=== PATIENT | female | born 1965 | race American Indian/Alaskan Native ===

== ENCOUNTER → 2018-10-12 07:06 | Outpatient (CLI) | payer OTHER, SELFPAY ==
--- NOTE | 2018-10-12 07:55 | DI.CT.S_ITS ---
PROCEDURE: CT KIDNEY URETER BLADDER (KUB) INDICATIONS: Calculus of kidney flank pain TECHNIQUE: Noncontrast 5 mm thick sections acquired from the diaphragms to the symphysis. 5 mm thick coronal and sagittal reformats were then performed. For radiation dose reduction, the following was used: automated exposure control, adjustment of mA and/or kV according to patient size. COMPARISON: [facility], CR, KUB XRAY (1 VIEW ABDOMEN), 01/15/2017, 14:08. [facility], CT, KIDNEY/ URETER/BLADDER, 07/21/2014, 10:44. [facility], CT, KIDNEY/ URETER/BLADDER, 05/28/2011, 9:45. FINDINGS: Image quality: Excellent. Lung bases: Lung bases are clear. Heart size is normal. Bilateral breast implants are identified, without evidence of definite implant rupture but there is asymmetry in the soft tissues at the lateral lower aspect of the left breast implant with mild nodularity (best seen centered on series 2 image 14). This is clearly asymmetric, when compared to the same area on the right. Urinary system: Both kidneys are normal in size. There are bilateral kidney stones ranging in size from 1 mm to 9 mm, with the largest calculus located at the lower third collecting system of the right kidney, measuring up to 780 Hounsfield units.. No hydronephrosis or perinephric fat stranding. Both ureters appear non-dilated throughout their expected courses. At the lower pelvis adjacent to the expected course of the left ureter there are 3 separate small 1-2 mm calculi none of which appear definitely within the distal left ureter which is obscured by apposition to adjacent soft tissue structures. No ureteral dilatation or inflammation in this area is found. Bladder wall thickness is normal; no calcified bladder stones. Other solid organs: Liver is normal in size. Gallbladder appears normal. Pancreas is normal in contours. Spleen is normal in size. No adrenal nodules. Peritoneum and bowel: Unenhanced bowel loops demonstrate normal wall thickness and caliber. No free fluid or air. Nodes and vessels: No retroperitoneal or mesenteric adenopathy by size criteria. Aorta and inferior vena cava are normal in caliber. Abdominal wall: No ventral hernias. Pelvis: No free pelvic fluid. No inguinal hernias or adenopathy. Bones: No suspicious bony lesions. No vertebral body compression fractures. IMPRESSION: 1. There is an unexpected finding adjacent to the lateral lower border of the left breast implant, clearly asymmetric when compared to the same area adjacent to the right breast implant, potentially evidence of an implant rupture or even neoplasm. Dedicated sonographic and mammographic followup is recommended targeted to that area. No comparison mammography related studies are available for review but may exist elsewhere. If so these should be obtained for comparison. 2. Interval removal of a left ureteral stent present 01/15/17. Occluded patient reports bilateral flank pain. No urinary tract obstruction is found that there is again noted multiple renal collecting system calculi, ranging in size from 1-2 mm to 9 mm. 3. The ureter bilaterally is not clearly visualized as it extends through the low pelvis to the bladder margin and on the left 3 small 1-2 mm calcifications can be seen which by appearance are likely external to the ureter on the left, especially given the absence of ureteral inflammation or dilatation more superiorly. Dictated by: Alex Marquez M.D. on 10/12/2018 at 8:16 Approved by: Alex Marquez M.D. on 10/12/2018 at 8:28
== END ==
PROVIDERS: Visit Provider Physician Assistant
DX: N20.0 Calculus of kidney (principal); N64.89 Other specified disorders of breast; Z98.82 Breast implant status
CPT/HCPCS: 74176

== ENCOUNTER 2018-11-06 18:08 | Emergency (ER) | payer OTHER, SELFPAY ==
[2018-11-06 18:47] VITALS: PULSE 69; RESP 18; TEMP 37.8; O2SAT 100; BMI 27.0
--- NOTE | 2018-11-06 19:05 | ED.ABDPAIN ---
HPI - Abdominal Pain General Chief Complaint: Abdominal Pain Stated Complaint: nausea/both legs pain/flank pain x 90 minutes Time Seen by Provider: 11/06/18 19:00 Source: patient and family () Mode of arrival: Ambulatory Limitations: no limitations History of Present Illness HPI narrative: This is a 53-year-old female who comes to the emergency department with complaint of right flank pain. Patient states that it started about 90 minutes ago. Patient states that she recently had a ureteral stent placed after cystoscopy for kidney stones by Dr. Huffman. Patient states that she has not had any fevers. She did and is having nausea and vomiting. She has had a normal bowel movement today, she denies minimal abdominal pain a little bit on the right mid side but mostly on the right flank and back. Patient denies any frequency or dysuria but has had some small blood clots and hematuria. She denies any vaginal bleeding or discharge. She states that she has had a partial hysterectomy. Denies any other prior surgeries. Denies any daily regular medications. States that she has vomiting with morphine and Percocet as well as allergic reaction penicillin. She does have a scopolamine patch in place for nausea s/p ureteral stent. Related Data Previous Rx's Medication Instructions Recorded ciprofloxacin HCl 500 mg PO BID #10 tab 11/06/18 ketorolac 10 mg PO Q6H PRN 5 Days #10 tab 11/06/18 Allergies Allergy/AdvReac Type Severity Reaction Status Date / Time morphine [MORPHINE] Allergy Unknown Verified 11/06/18 18:44 Penicillins [PENICILLINS] Allergy Unknown Verified 11/06/18 18:44 Review of Systems Review of Systems ROS Unobtainable: All systems reviewed & are unremarkable except as noted in HPI and below Constitutional Constitutional: Denies chills, Denies fever(s), Denies lethargy and Denies weakness Gastrointestinal Gastrointestinal: Reports abdominal pain (minimal right), Denies melena, Denies hematochezia, Denies change in bowel habits, Denies constipation, Denies diarrhea, Reports nausea and Reports vomiting Genitourinary Genitourinary: Reports as per HPI, Denies abnormal vaginal bleeding, Denies hematuria, Denies urinary frequency, Denies dysuria, Reports flank pain (right), Denies urinary incontinence, Denies urinary hesitancy, Denies urinary urgency and Denies vaginal discharge Neurologic Neurologic: Denies weakness PFSH Surgical History (Updated 11/06/18 @ 22:59 by Loli Negron DO) S/P ureteral stent placement (Acute) Social History (Updated 11/06/18 @ 19:08 by Loli Negron DO) marital status: Smoking Status: Never smoker Social History (Updated 11/06/18 @ 19:08 by Loli Negron DO) marital status: Smoking Status: Never smoker Exam Narrative Exam Narrative: GENERAL: Alert and oriented x three, well nourished female in moderate. HEENT: Head normocephalic, atraumatic, EOMI, pupils reactive, face symmetric, moist mucous membranes NECK: Supple, full range of motion CARDIOVASCULAR: Regular rate and rhythm without murmurs, rubs or gallops. RESPIRATORY: Breath sounds equal bilaterally, no wheezes rales or rhonchi. ABDOMEN: Soft, nontender. Normoactive bowel sounds all 4 quadrants. No guarding or rebound, rigidity, no mass : mild right CVA tenderness EXTREMITIES: Normal range of motion. Neurovascularly intact NEUROLOGICAL: Cranial nerves II through XII grossly intact. Moving all extremities SKIN: Warm, dry, no petechiae, no rashes or lesions. Initial Vital Signs Initial Vital Signs: Vital Signs Temperature 100.0 F H 11/06/18 18:47 Pulse Rate 69 11/06/18 18:47 Respiratory Rate 18 11/06/18 18:47 Pulse Oximetry 100 11/06/18 18:47 Course Orders Ordered: ED Orders 11/06/18 21:27 Urinalysis and Microscopic Stat Urine Culture Stat Discontinued Medications Hydromorphone HCl (Dilaudid) 0.5 mg IV NOW ONE Stop: 11/06/18 21:31 Last Admin: 11/06/18 22:02 Dose: 0.5 mg Documented by: YARELI Sodium Chloride (Normal Saline 0.9%) 1,000 mls @ 1,000 mls/hr IV BOLUS ONE Stop: 11/06/18 20:03 Last Infusion: 11/06/18 20:25 Dose: 0 mls/hr Documented by: Admin: 11/06/18 19:18 Dose: 1,000 mls/hr Documented by: YARELI Ketorolac Tromethamine (Toradol) 30 mg IV NOW ONE Stop: 11/06/18 19:05 Last Admin: 11/06/18 19:18 Dose: 30 mg Documented by: YARELI Levofloxacin (Levaquin) 500 mg PO NOW ONE Stop: 11/06/18 23:09 Last Admin: 11/06/18 23:18 Dose: 500 mg Documented by: YARELI Ondansetron HCl (Zofran) 4 mg IV NOW ONE Stop: 11/06/18 19:05 Last Admin: 11/06/18 19:18 Dose: 4 mg Documented by: YARELI Ondansetron HCl (Zofran) 4 mg IV NOW ONE Stop: 11/06/18 21:52 Last Admin: 11/06/18 22:03 Dose: 4 mg Documented by: YARELI Vital Signs Vital signs: Vital Signs - 8 hr 11/06/18 23:53 Temperature 98.7 F Pulse Rate 59 L Respiratory Rate 18 Blood Pressure 115/72 Pulse Oximetry 98 MDM - Abdominal Pain Lab Data Attestation: I reviewed the patient's lab results. Result diagrams: 11/06/18 19:06 11/06/18 19:06 Labs: Lab Results 11/06/18 11/06/18 11/06/18 Range/Units 19:06 19:06 21:27 WBC 12.7 H (4.5-11.0) X10^3/uL RBC 4.23 (4.0-5.2) X10^6/uL Hgb 13.1 (12.0-16.0) g/dL Hct 38.6 (36-46) % MCV 91.4 (80-100) fL MCH 30.9 (26-34) PG MCHC 33.8 (30-36) % RDW 13.4 (11.6-14.8) % Plt Count 247 (150-400) X10^3/uL Neut % (Auto) 71.8 (50-75) % Lymph % (Auto) 20.4 L (25-40) % [place] % (Auto) 6.1 (3-14) % Eos % (Auto) 1.4 L (2-4) % Baso % (Auto) 0.3 (0-2) % Neut # (Auto) 9100 H (5933-8118) /uL Lymph # (Auto) 2600 (3109-9890) /uL [place] # (Auto) 800 (0-900) /uL Eos # (Auto) 200 (0-450) /uL Baso # (Auto) 0 (0-100) /uL Sodium 137 (137-145) mmol/L Potassium 3.7 (3.4-5.1) mmol/L Chloride 103 (98-107) mmol/L Carbon Dioxide 25 (22-32) mmol/L BUN 20 H (7-17) mg/dL Creatinine 0.70 (0.52-1.04) mg/dL Estimated GFR > 60.0 (>60) mL/min BUN/Creatinine Ratio 28.6 H (6-22) Glucose 92 (70-100) mg/dL Calcium 9.0 (8.4-10.2) mg/dL Total Bilirubin 0.5 (0.2-1.3) mg/dL AST 18 (14-36) IU/L ALT 20 (9-52) IU/L Alkaline Phosphatase 44 (38-126) U/L Total Protein 7.3 (6.3-8.2) g/dL Albumin 4.4 (3.5-5.0) g/dL Globulin 2.9 (1.7-4.1) g/dL Albumin/Globulin Ratio 1.5 (1.0-2.8) Lipase 41 (23-300) U/L Urine Color Red Urine Appearance Cloudy Urine pH 7.5 (4.5-8.0) Ur Specific [place] 1.010 (1.000-1.035) Urine Protein 2+ H (Negative) Urine Glucose (UA) Negative (Negative) g/dL Urine Ketones 1+ H (NEGATIVE) Urine Occult Blood 3+ H (Negative) Urine Nitrate Negative (Negative) Urine Bilirubin Negative (NEGATIVE) Urine Urobilinogen Normal (0.2) E.U./dL Ur Leukocyte Esterase 2+ H (NEGATIVE) Urine RBC >100/hpf H (0-5/HPF) Urine WBC 5-10/hpf H (0-5/HPF) Ur Squamous Epith Cells 1-5 /hpf (0-5/HPF) Urine Bacteria Few (2-10) H (None) Urine Mucus 2+ H (Negative) Ur Culture Indicated? Specimen cultured Imaging Data CT KUB: Radiologist's impression: [address] [address] [address] Scan Report Signed Patient: Patria Perez [facility]#: [id number] : 1965Acct:[id number] Age/Sex: 53 / FDate of Service: 11/06/18 Loc: ED Accession Number: [id number] Procedure: CT abdomen pelvis wo con Ordering Provider: Loli Negron D.O. PROCEDURE: CT ABDOMEN PELVIS WO CON INDICATIONS: right flank pain, ureteral stent placed, hx stones TECHNIQUE: Noncontrast 5 mm thick sections acquired from the diaphragms to the symphysis. 5 mm thick coronal and sagittal reformats were then performed. For radiation dose reduction, the following was used: automated exposure control, adjustment of mA and/or kV according to patient size. COMPARISON: [facility], CT, CT KIDNEY URETER BLADDER (KUB), 10/12/2018, 7:09. FINDINGS: Image quality: Excellent. Lung bases: Lung bases are clear. Heart size is normal. Bilateral breast implants are again seen with irregularity and asymmetry along lateral aspect of left breast implant concerning for impending rupture unchanged from previous study. Urinary system: Bilateral nonobstructing renal calculi are again seen, not significantly changed in size and appearance from previous study. There is interval placement of a right-sided ureteral stent which is in its expected position. There is interval development of moderate right-sided hydronephrosis and hydroureter surrounding the stent concerning for stent failure or occlusion. No left-sided hydronephrosis or obstructing renal stone is seen. Left ureter shows no gross abnormality. Bladder wall thickness is normal; no calcified bladder stones. Other solid organs: Liver is normal in size. Gallbladder is within normal limits. Pancreas is normal in contours. Spleen is normal in size. No adrenal nodules. Peritoneum and bowel: Unenhanced bowel loops demonstrate normal wall thickness and caliber. No free fluid or air. Fecal stasis throughout the colon is seen. No evidence of acute appendicitis or diverticulitis. Nodes and vessels: No retroperitoneal or mesenteric adenopathy by size criteria. Aorta and inferior vena cava are normal in caliber. Abdominal wall: No ventral hernias. Pelvis: No free pelvic fluid. No inguinal hernias or adenopathy. Bones: No suspicious bony lesions. No vertebral body compression fractures. IMPRESSION: 1. Compared to previous study, there is interval placement of a right-sided ureteral stent which is in satisfactory position. There is interval development of moderate right-sided hydronephrosis and hydroureter concerning for stent occlusion/failure. 2. Bilateral nonobstructing renal calculi. No left-sided hydronephrosis. Normal appearing left ureter and urinary bladder. 3. Abnormal appearance along lateral aspect of left breast implant concerning for implant rupture suggest clinical correlation. Dictated by: Donnie García M.D. on 11/06/2018 at 20:08 Approved by: Donnie García M.D. on 11/06/2018 at 20:16 [facility] Narrative Medical decision making narrative: Recheck after pain medications, patient is much more comfortable. During patient's stay she became more uncomfortable again responded to a dose of Dilaudid. Patient and I reviewed her findings, lab work and urinalysis. I spoke with Dr. Huffman her urologist who states that her hydronephrosis is not unexpected, chills a elevated white count of 12, temperature was a 100? F but did not increase any further, urine shows leuks but no nitrates, no clear-cut UTI. Patient's renal function is in the normal range. She does have a urine culture pending. Patient is expected to be seen this coming Thursday in 5 days. She does recommend starting Cipro 500 mg twice daily. Discussed with patient if she is not improving to recontact Urology but if worsening or having any new complications or feels the need she can return at any time. She is much more comfortable and has several medications available at home. We did discuss trying a dose of ketorolac oral at home for the short term. She does have Vicodin or Sims at home. She deferred a prescription for Zofran. Discharge Plan Departure Patient Disposition: Home Clinical Impression: S/P ureteral stent placement, Hydronephrosis Discharge Date/Time: 11/06/18 23:57 Instructions: DI for Ureteral Stent Placement Activity Restrictions/Additional Instructions: Follow-up with Dr. Huffman at your follow-up appointment. Call for sooner appointment if your symptoms are not improving over the next 24 hours. Take Ciprofloxacin 500 mg twice daily x5 days. Take pain medications as prescribed these medications can make you sleepy do not drive, perform hazardous activities or make any major decisions while taking them. A you may also take Toradol 1 tablet every 6 hours as needed for pain. You may take this with your Sims/Vicodin. Return to the Emergency Department fevers greater 100.4 F, persistent vomiting, new abdominal or flank pain, passing out, black or bloody stools, inability urinate or other new or concerning symptoms. Prescriptions: New ketorolac 10 mg tablet 10 mg PO Q6H PRN (Reason: pain) 5 Days Qty: 10 RF: 0 ciprofloxacin HCl 500 mg tablet 500 mg PO BID Qty: 10 RF: 0 Referrals: Atul Arias MD [Primary Care Provider] -
[2018-11-06] MEDS: KETOROLAC 60 MG/2 ML VIAL 30 MG IV (19:18)
[2018-11-06] MEDS: ONDANSETRON 4 MG/2 ML INJ IV ×2 (19:18→22:03)
[2018-11-06] MEDS: SODIUM CHLORIDE 0.9% 1,000 ML 1000 ML IV (19:18)
--- NOTE | 2018-11-06 19:25 | PC.NURSE ---
Pt had hysterectomy. Urine preg cancelled.
[2018-11-06 19:30] LABS: Add Manual Diff / Slide Review NO; Basophils Absolute Auto 0 /uL (0-100); Basophils Percent Auto 0.3 % (0-2); Eosinophils Absolute Auto 200 /uL (0-450); Eosinophils Percent Auto 1.4 % (2-4); Hematocrit 38.6 % (36-46); Hemoglobin 13.1 g/dL (12.0-16.0); Lymphocytes Absolute Auto 2600 /uL (1100-4500); Lymphocytes Percent Auto 20.4 % (25-40); Mean Corpuscular HGB Conc 33.8 % (30-36); Mean Corpuscular Hemoglobin 30.9 PG (26-34); Mean Corpuscular Volume 91.4 fL (80-100); Monocytes Absolute Auto 800 /uL (0-900); Monocytes Percent Auto 6.1 % (3-14); Neutrophils Absolute Auto 9100 /uL (1500-7000); Neutrophils Percent Auto 71.8 % (50-75); Platelet Count 247 X10^3/uL (150-400); Red Blood Cell Count 4.23 X10^6/uL (4.0-5.2); Red Cell Distribution Width 13.4 % (11.6-14.8); White Blood Cell Count 12.7 X10^3/uL (4.5-11.0)
[2018-11-06 19:46] LABS: Alanine Aminotransferase 20 IU/L (9-52); Albumin 4.4 g/dL (3.5-5.0); Albumin Globulin Ratio 1.5 (1.0-2.8); Alkaline Phosphatase 44 U/L (38-126); Aspartate Aminotransferase 18 IU/L (14-36); BUN Creatinine Ratio 28.6 (6-22); Bilirubin Total 0.5 mg/dL (0.2-1.3); Blood Urea Nitrogen 20 mg/dL (7-17); Carbon Dioxide 25 mmol/L (22-32); Chloride 103 mmol/L (98-107); Estimated Glomerular Filt Rate > 60.0 mL/min (>60); Globulin 2.9 g/dL (1.7-4.1); Glucose 92 mg/dL (70-100); HEMOLYSIS < 15 (0-50); Potassium 3.7 mmol/L (3.4-5.1); Sodium 137 mmol/L (137-145); Total Protein 7.3 g/dL (6.3-8.2)
[2018-11-06 19:57] VITALS: BP 95/58; PULSE 62; O2SAT 98
[2018-11-06 20:30] VITALS: BP 94/54; PULSE 61; RESP 18; O2SAT 98
[2018-11-06 20:50] LABS: Lipase 41 U/L (23-300)
[2018-11-06] MEDS: HYDROMORPHONE 0.5 MG INJ IV (22:02)
[2018-11-06 22:20] LABS: Appearance Urine UA Cloudy; Color Urine UA Red; Glucose Urine UA NEGATIVE (Negative); Protein Urine UA 2+ (Negative); pH Urine UA 7.5 (4.5-8.0)
[2018-11-06 22:21] LABS: Bacteria Urine Few (2-10); Bilirubin Urine UA Negative (NEGATIVE); Ketones Urine UA 1+ (NEGATIVE); Leukocyte Esterase Urine UA 2+ (NEGATIVE); Nitrite Urine UA NEGATIVE (Negative); Occult Blood Urine UA 3+ (Negative); RBC Urine >100/HPF (0-5/HPF); Squamous Epithelial Cell Urine 1-5 /HPF (0-5/HPF); Urobilinogen Urine UA Normal E.U./dL (0.2); WBC Urine 5-10/HPF (0-5/HPF)
[2018-11-06 22:22] LABS: Culture Indicated Urine Specimen Cultured; Mucus Urine 2+ (Negative)
[2018-11-06] MEDS: levoFLOXacin 250 MG TABLET 500 MG PO (23:18)
[2018-11-06 23:53] VITALS: BP 115/72; PULSE 59; RESP 18; TEMP 37.1; O2SAT 98
== END 2018-11-06 23:57 | disposition home or self-care (01) ==
PROVIDERS: Emergency Provider Emergency Medicine
DX: Z96.0 Presence of urogenital implants (principal); N13.30 Unspecified hydronephrosis
CPT/HCPCS: 36415; 74176; 80053; 81001; 83690; 85025; 87077; 87086; 87147; 87186; 96361; 96374; 96375; 96376; 99283; 99284; J1170; J1885; J2405

== ENCOUNTER → 2018-11-16 10:30 | Outpatient (CLI) | payer OTHER, SELFPAY ==
--- NOTE | 2018-11-16 | DI.US.S_ITS ---
PROCEDURE: US RENAL COMPLETE INDICATIONS: STONES TECHNIQUE: Real-time scanning was performed of the kidneys and bladder, with image documentation. COMPARISON: [facility], CR, XR RETROGRADE UROGRAPHY, 11/02/2018, 17:22. [facility], CT, KIDNEY/ URETER/BLADDER, 07/21/2014, 10:44. [facility], CT, CT KIDNEY URETER BLADDER (KUB), 10/12/2018, 7:09. [facility], CT, CT ABDOMEN PELVIS WO CON, 11/06/2018, 19:13. FINDINGS: Kidneys: Kidneys are normal in size. Right kidney measures 11.9 cm long; left kidney measures 1.6 cm long. Right renal cortical thickness is 11.1 cm; left renal cortical thickness is 1.5 cm. Renal cortical echotexture is normal. There is a 1.0 cm stone in the inferior right renal collection system. There is mild right hydronephrosis. A couple of nonobstructive stones are noted in the left kidney measuring 4.8 mm and 5.7 mm. A ureter stent is noted on the right side. No left hydronephrosis. No suspicious solid mass lesions. Bladder: Pre-void bladder volume is 45 mL. Post-void residual is 0 mL. Pre-void images demonstrate no intraluminal masses or stones. On pre-void images, neither ureteral jets are noted with color Doppler interrogation. (Of note, ureteral jets may not be detectable in up to 25% of cases due to insufficient differences in specific gravity between ureteral and bladder urine). Miscellaneous: No free pelvic fluid. IMPRESSION: 1. There is a right ureter stent. Mild left hydronephrosis is present. There is a 1.2 cm stone in the inferior right renal collecting system. 2. A couple of nonobstructive left renal calculi are identified. No left hydronephrosis. 3. Normal urinary bladder. Neither ureters were visualized during examination. Dictated by: Brijesh Fatima M.D. on 11/16/2018 at 15:42 Approved by: Brijesh Fatima M.D. on 11/16/2018 at 15:48
== END ==
PROVIDERS: PCP Family Medicine; Visit Provider Urology
DX: N13.2 Hydronephrosis with renal and ureteral calculous obstruction (principal); Z96.0 Presence of urogenital implants
CPT/HCPCS: 76770

== ENCOUNTER → 2019-04-14 13:12 | Outpatient (CLI) | payer OTHER, SELFPAY ==
[2019-04-14 14:37] LABS: Appearance Urine UA CLEAR; Bilirubin Urine UA NEGATIVE (NEGATIVE); Color Urine UA YELLOW; Glucose Urine UA NEGATIVE (Negative); Ketones Urine UA NEGATIVE (NEGATIVE); Leukocyte Esterase Urine UA NEGATIVE (NEGATIVE); Nitrite Urine UA NEGATIVE (Negative); Occult Blood Urine UA 3+ (Negative); Protein Urine UA NEGATIVE (Negative); Urobilinogen Urine UA 0.2 E.U./dL (0.2)
[2019-04-14 15:05] LABS: pH Urine UA 5.5 (4.5-8.0)
[2019-04-14 15:06] LABS: Bacteria Urine Occasional (0-1); Culture Indicated Urine Specimen Cultured; Mucus Urine 1+ (Negative); RBC Urine 1-5/HPF (0-5/HPF); Squamous Epithelial Cell Urine 0-1 /HPF (0-5/HPF); WBC Urine 5-10/HPF (0-5/HPF)
== END ==
PROVIDERS: PCP Family Medicine
DX: N20.0 Calculus of kidney (principal)
CPT/HCPCS: 81001; 87086

== ENCOUNTER 2022-04-28 12:53 | Emergency (ER) | payer OTHER, SELFPAY ==
[2022-04-28 13:10] VITALS: BP 120/81; PULSE 73; RESP 17; TEMP 36.6; O2SAT 100
[2022-04-28 13:44] LABS: Bacteria Urine Few (2-10); Culture Indicated Urine Specimen Cultured; Mucus Urine 1+ (Negative); RBC Urine 1-5/HPF (0-5/HPF); Squamous Epithelial Cell Urine 1-5 /HPF (0-5/HPF); WBC Urine 5-10/HPF (0-5/HPF)
[2022-04-28 14:10] LABS: Add Manual Diff / Slide Review NO; Basophils Absolute Auto 0 /uL (0-100); Basophils Percent Auto 0.6 % (0-2); Eosinophils Absolute Auto 100 /uL (0-450); Eosinophils Percent Auto 1.8 % (2-4); Hematocrit 38.3 % (36-46); Hemoglobin 12.7 g/dL (12.0-16.0); Lymphocytes Absolute Auto 1800 /uL (1100-4500); Lymphocytes Percent Auto 21.9 % (25-40); Mean Corpuscular HGB Conc 33.2 % (30-36); Mean Corpuscular Hemoglobin 29.8 PG (26-34); Monocytes Absolute Auto 600 /uL (0-900); Monocytes Percent Auto 7.6 % (3-14); Neutrophils Absolute Auto 5500 /uL (1500-7000); Neutrophils Percent Auto 68.1 % (50-75); Platelet Count 262 X10^3/uL (150-400); Red Blood Cell Count 4.26 X10^6/uL (4.0-5.2); Red Cell Distribution Width 13.9 % (11.6-14.8)
--- NOTE | 2022-04-28 14:17 | DI.CT.S_ITS ---
PROCEDURE: CT ABDOMEN PELVIS W CON INDICATIONS: R flank pain TECHNIQUE: After the administration of IV contrast, axial sections were acquired from the lung bases to the pubic symphysis. Coronal and sagittal reformats were performed. For radiation dose reduction, the following was used: automated exposure control, adjustment of mA and/or kV according to patient size. COMPARISON: [facility], CT, CT ABDOMEN PELVIS WO CON, 11/06/2018, 19:13. FINDINGS: Image quality: Excellent. Lung bases: Unremarkable. Heart: No significant findings. ABDOMEN: Liver: Liver measures 18.6 cm with mild steatosis. Gallbladder: Unremarkable. Biliary ducts: Unremarkable. Pancreas: Unremarkable. Spleen: Unremarkable. Adrenal Glands: Unremarkable. Kidneys and Ureters: Left kidney demonstrates punctate superior pole calcifications. The largest calcification is noted in the inferior pole measuring 6 mm, Hounsfield units 730, unchanged. The right kidney demonstrates multiple calcifications overall less prominent when compared to prior exam. The largest calcification is identified currently within the renal pelvis measuring 8 mm, Hounsfield units 1204. There is moderate to severe hydronephrosis and dilated extrarenal pelvis. Stomach and Bowel: Stomach, small bowel loops, and colon are nonobstructive. Colonic diverticula are present without associated inflammatory change. Peritoneum: No abnormal intraperitoneal fluid. No free air. Ventral Wall: No hernia. Abdominal Nodes: No retroperitoneal or mesenteric adenopathy by size criteria. Vessels: Aorta and inferior vena cava are normal in size. PELVIS: Pelvic Organs: Unremarkable. Bladder: Unremarkable. Pelvic Nodes: No enlarged lymph nodes. Miscellaneous: No inguinal hernias are seen. Bones: Unremarkable. IMPRESSION: Right renal pelvic calcification with moderate to severe hydronephrosis. It is noted hydronephrosis is present 2018 as well as a ureterovesicular stent. Nonobstructing bilateral renal calculi. Diverticulosis. Dictated by: Rosario Hendricks M.D. on 04/28/2022 at 14:48 Approved by: Rosario Hendricks M.D. on 04/28/2022 at 14:51
[2022-04-28 14:22] LABS: Alanine Aminotransferase 14 IU/L (<35); Albumin 4.5 g/dL (3.5-5.0); Albumin Globulin Ratio 1.4 (1.0-2.8); Alkaline Phosphatase 54 U/L (38-126); Aspartate Aminotransferase 20 IU/L (14-36); BUN Creatinine Ratio 28.6 (6-22); Bilirubin Total 0.4 mg/dL (0.2-1.3); Blood Urea Nitrogen 14 mg/dL (7-17); Calcium 8.8 mg/dL (8.4-10.2); Carbon Dioxide 27 mmol/L (22-32); Chloride 109 mmol/L (98-107); Estimated Glomerular Filt Rate > 60 mL/min (>60); Globulin 3.3 g/dL (1.7-4.1); Glucose 89 mg/dL (70-100); HEMOLYSIS 28 (0-50); Lipase 121 U/L (23-300); Sodium 142 mmol/L (137-145); Total Protein 7.8 g/dL (6.3-8.2)
[2022-04-28] MEDS: SODIUM CHLORIDE 0.9% 1,000 ML 1000 ML IV (14:35)
[2022-04-28] MEDS: KETOROLAC 30 MG/ML VIAL 15 MG IV (14:36)
[2022-04-28] MEDS: ONDANSETRON 4 MG/2 ML INJ IV (14:36)
[2022-04-28 14:39] VITALS: PULSE 63; O2SAT 100
[2022-04-28 14:40] VITALS: BP 116/63; PULSE 63; O2SAT 100
[2022-04-28 15:00] VITALS: BP 131/78; PULSE 72; RESP 16; O2SAT 96
--- NOTE | 2022-04-28 15:00 | ED_ITS ---
HPI - Abdominal Pain <Elizabeth Wang PA-C - Last Filed: 04/28/22 16:13> General Chief Complaint: Abdominal Pain Stated Complaint: kidney pain RT pain Time Seen by Provider: 04/28/22 14:00 Source: patient Mode of arrival: Ambulatory History of Present Illness HPI narrative: 56-year-old female with past medical history nephrolithiasis presents to the ED with 1 day of right-sided flank pain. Patient endorses chills, nausea. Patient denies fever, chest pain, shortness of breath, dysuria, abdominal pain, lightheadedness, dizziness, syncope. Patient has a history of kidney stones, for which she needed ureteral stents in the past. Ureteral stents no longer in. Related Data Previous Rx's Medication Instructions Recorded cefpodoxime 200 mg tablet 200 mg PO BID 10 days #20 tabs 04/28/22 Allergies Allergy/AdvReac Type Severity Reaction Status Date / Time morphine [MORPHINE] Allergy Unknown Verified 04/28/22 13:12 Penicillins [PENICILLINS] Allergy Unknown Verified 04/28/22 13:12 acetaminophen [From Percocet] Allergy Verified 04/28/22 14:35 oxycodone [From Percocet] Allergy Verified 04/28/22 14:35 Review of Systems <Elizabeth Wang PA-C - Last Filed: 04/28/22 16:13> Review of Systems ROS Unobtainable: All systems reviewed & are unremarkable except as noted in HPI and below Constitutional Constitutional: Reports chills, Denies fatigue, Denies fever(s), Denies frequent falls, Denies lethargy and Denies weakness Eyes Eyes: Denies change in vision, Denies eye discharge, Denies irritation and Denies loss of vision ENT Ears, Nose, Mouth, and Throat: Denies change in voice, Denies dizziness, Denies neck pain, Denies sore throat and Denies throat swelling Cardiovascular Cardiovascular: Denies chest pain, Denies irregular heart rhythm, Denies lightheadedness, Denies palpitations, Denies dyspnea, Denies dyspnea on exertion and Denies orthopnea Respiratory Respiratory: Denies cough, Denies dyspnea, Denies dyspnea on exertion and Denies wheezing Gastrointestinal Gastrointestinal: Denies abdominal pain, Denies change in bowel habits, Denies diarrhea, Reports nausea and Denies vomiting Comments: R flank pain Genitourinary Genitourinary: Denies hematuria, Denies dysuria, Denies flank pain, Denies urinary incontinence and Denies urinary urgency Musculoskeletal Musculoskeletal: Denies back pain, Denies muscle weakness, Denies neck pain, Denies numbness and Denies tingling Integumentary/Breasts Skin/Breast: Denies pruritus, Denies erythema, Denies rash and Denies wounds Neurologic Neurologic: Denies behavioral changes, Denies confusion, Denies dizziness, Denies frequent falls, Denies loss of vision, Denies numbness, Denies tingling and Denies weakness Psychiatric Psychiatric: Denies anxiety, Denies behavioral changes, Denies confusion, Denies depression, Denies homicidal ideation and Denies suicidal ideation Endocrine Endocrine: Denies fatigue, Denies flushing and Denies palpitations Hematologic/Lymphatic Hematologic/Lymphatic: Denies easy bruising Allergic/Immunologic Allergic/Immunologic: Denies urticaria, Denies throat swelling and Denies wheezing Patient History <Elizabeth Wang PA-C - Last Filed: 04/28/22 16:13> Surgical History S/P ureteral stent placement Social History marital status: Smoking Status: Never smoker Smoking Status: Never smoker Substance Use Type: does not use Exam <Elizabeth Wang PA-C - Last Filed: 04/28/22 16:13> Narrative Exam Narrative: Const General:?cooperative, healthy appearing and comfortable [facility] Head:?normal to inspection Ears:?hearing grossly normal bilaterally Nose:?external nose normal Face and sinus:?normal facial exam and sinuses nontender Mouth:?oral mucosae normal Throat:?posterior oropharynx normal Eyes General:?appearance normal, both eyes and all related structures Neck Neck:?normal visual inspection and no lymphadenopathy noted Resp Effort & Inspection:?normal respiratory effort Auscultation:?clear to auscultation bilaterally Cardio Rate:?regular rate Rhythm:?regular rhythm GI Abdomen is soft, nondistended, nontender to palpation. There is right-sided CVA tenderness. Neuro General:?patient alert, patient awake and patient oriented x3 Initial Vital Signs Initial Vital Signs: Vital Signs Temperature 98 F 04/28/22 13:10 Pulse Rate 73 04/28/22 13:10 Respiratory Rate 17 04/28/22 13:10 Blood Pressure 120/81 04/28/22 13:10 Pulse Oximetry 100 04/28/22 13:10 Oxygen Delivery Method Room Air 04/28/22 13:10 <Yoseph Messina DO - Last Filed: 04/28/22 16:13> Initial Vital Signs Initial Vital Signs: Vital Signs Temperature 98 F 04/28/22 13:10 Pulse Rate 73 04/28/22 13:10 Respiratory Rate 17 04/28/22 13:10 Blood Pressure 120/81 04/28/22 13:10 Pulse Oximetry 100 04/28/22 13:10 Oxygen Delivery Method Room Air 04/28/22 13:10 Course <Elizabeth Wang PA-C - Last Filed: 04/28/22 16:13> Orders Ordered: ED Orders 04/28/22 13:18 Urine Culture Stat Urine Microscopic Stat 04/28/22 14:00 Complete Blood Count AUTO DIFF Stat Comprehensive Metabolic Panel Stat Lipase Stat 04/28/22 14:17 CT abdomen pelvis w con Stat Discontinued Medications Sodium Chloride (Normal Saline 0.9%) 1,000 mls @ 1,000 mls/hr IV BOLUS ONE Stop: 04/28/22 15:11 Last Infusion: 04/28/22 16:02 Dose: 0 mls/hr Documented By: Admin: 04/28/22 14:35 Dose: 1,000 mls/hr Documented By: SHAHRIAR Ketorolac Tromethamine (Ketorolac 30 Mg/Ml Vial) 15 mg IV NOW ONE Stop: 04/28/22 14:13 Last Admin: 04/28/22 14:36 Dose: 15 mg Documented By: SHAHRIAR Ondansetron HCl (Ondansetron 4 Mg/2 Ml Inj) 4 mg IV NOW ONE Stop: 04/28/22 14:13 Last Admin: 04/28/22 14:36 Dose: 4 mg Documented By: SHAHRIAR Vital Signs Vital signs: Vital Signs - 8 hr 04/28/22 13:10 04/28/22 14:39 04/28/22 14:40 Temperature 98 F Pulse Rate 73 63 Respiratory Rate 17 Blood Pressure 120/81 116/63 Pulse Oximetry 100 100 Oxygen Delivery Method Room Air 04/28/22 14:40 04/28/22 15:00 04/28/22 15:00 Temperature Pulse Rate 63 72 Respiratory Rate 16 Blood Pressure 131/78 Pulse Oximetry 100 96 Oxygen Delivery Method 04/28/22 15:30 04/28/22 15:30 Temperature Pulse Rate 69 Respiratory Rate 20 Blood Pressure 118/69 Pulse Oximetry 98 Oxygen Delivery Method Room Air <Yoseph Messina DO - Last Filed: 04/28/22 16:13> Orders Ordered: ED Orders 04/28/22 13:18 Urine Culture Stat Urine Microscopic Stat 04/28/22 14:00 Complete Blood Count AUTO DIFF Stat Comprehensive Metabolic Panel Stat Lipase Stat 04/28/22 14:17 CT abdomen pelvis w con Stat Discontinued Medications Sodium Chloride (Normal Saline 0.9%) 1,000 mls @ 1,000 mls/hr IV BOLUS ONE Stop: 04/28/22 15:11 Last Infusion: 04/28/22 16:02 Dose: 0 mls/hr Documented By: Admin: 04/28/22 14:35 Dose: 1,000 mls/hr Documented By: SHAHRIAR Ketorolac Tromethamine (Ketorolac 30 Mg/Ml Vial) 15 mg IV NOW ONE Stop: 04/28/22 14:13 Last Admin: 04/28/22 14:36 Dose: 15 mg Documented By: SHAHRIAR Ondansetron HCl (Ondansetron 4 Mg/2 Ml Inj) 4 mg IV NOW ONE Stop: 04/28/22 14:13 Last Admin: 04/28/22 14:36 Dose: 4 mg Documented By: SHAHRIAR Vital Signs Vital signs: Vital Signs - 8 hr 04/28/22 13:10 04/28/22 14:39 04/28/22 14:40 Temperature 98 F Pulse Rate 73 63 Respiratory Rate 17 Blood Pressure 120/81 116/63 Pulse Oximetry 100 100 Oxygen Delivery Method Room Air 04/28/22 14:40 04/28/22 15:00 04/28/22 15:00 Temperature Pulse Rate 63 72 Respiratory Rate 16 Blood Pressure 131/78 Pulse Oximetry 100 96 Oxygen Delivery Method 04/28/22 15:30 04/28/22 15:30 Temperature Pulse Rate 69 Respiratory Rate 20 Blood Pressure 118/69 Pulse Oximetry 98 Oxygen Delivery Method Room Air MDM - Abdominal Pain <Elizabeth Wang PA-C - Last Filed: 04/28/22 16:13> Lab Data 04/28/22 14:00 04/28/22 14:00 Labs: Lab Results 04/28/22 04/28/22 04/28/22 Range/Units 13:18 14:00 14:00 WBC 8.0 (4.5-11.0) X10^3/uL RBC 4.26 (4.0-5.2) X10^6/uL Hgb 12.7 (12.0-16.0) g/dL Hct 38.3 (36-46) % MCV 90.0 (80-100) fL MCH 29.8 (26-34) PG MCHC 33.2 (30-36) % RDW 13.9 (11.6-14.8) % Plt Count 262 (150-400) X10^3/uL Neut % (Auto) 68.1 (50-75) % Lymph % (Auto) 21.9 L (25-40) % Mcleod % (Auto) 7.6 (3-14) % Eos % (Auto) 1.8 L (2-4) % Baso % (Auto) 0.6 (0-2) % Neut # (Auto) 5500 (4092-6103) /uL Lymph # (Auto) 1800 (7505-3870) /uL Mcleod # (Auto) 600 (0-900) /uL Eos # (Auto) 100 (0-450) /uL Baso # (Auto) 0 (0-100) /uL Sodium 142 (137-145) mmol/L Potassium 4.0 (3.4-5.1) mmol/L Chloride 109 H (98-107) mmol/L Carbon Dioxide 27 (22-32) mmol/L BUN 14 (7-17) mg/dL Creatinine 0.49 L (0.52-1.04) mg/dL Estimated GFR > 60 (>60) mL/min BUN/Creatinine Ratio 28.6 H (6-22) Glucose 89 (70-100) mg/dL Calcium 8.8 (8.4-10.2) mg/dL Total Bilirubin 0.4 (0.2-1.3) mg/dL AST 20 (14-36) IU/L ALT 14 (<35) IU/L Alkaline Phosphatase 54 (38-126) U/L Total Protein 7.8 (6.3-8.2) g/dL Albumin 4.5 (3.5-5.0) g/dL Globulin 3.3 (1.7-4.1) g/dL Albumin/Globulin Ratio 1.4 (1.0-2.8) Lipase 121 (23-300) U/L Urine RBC 1-5/hpf (0-5/HPF) Urine WBC 5-10/hpf H (0-5/HPF) Ur Squamous Epith Cells 1-5 /hpf (0-5/HPF) Urine Bacteria Few (2-10) H (None) Urine Mucus 1+ H (Negative) Ur Culture Indicated? Specimen cultured Point of care testing: Urine Dip Bedside Urine Glucose Negative Bedside Urine Bilirubin - Negative Bedside Urine Ketone - Negative Urine Specific Agate 1.020 Bedside Urine Occult Blood ++ Bedside Urine pH 6.0 Bedside Urine Protein +/- 15 Bedside Urine Urobilinogen - Negative Bedside Urine Nitrite - Negative Bedside Urine Leukocytes - Negative Esterase MDM Narrative Medical decision making narrative: 56-year-old female with past medical history nephrolithiasis presents to the ED with 1 day of right-sided flank pain. Concern for nephrolithiasis versus acute cystitis versus pyelonephritis versus other intra-abdominal pathology versus other. Will obtain labs, UA, CT abdomen pelvis. Will treat symptoms with ketorolac, Zofran, IV fluids. Will reassess. Patient's symptoms improved with medications. UA was positive for a UTI. No acute findings from labs. There are bilateral nonobstructing kidney stones on CT with right-sided hydronephrosis. no other acute findings. Discussed findings with patient. Recommend antibiotics. Patient agrees to follow-up with PCP as soon as possible. ED return precautions were discussed with patient. Patient verbalized understanding. Medical records reviewed: Yes <Yoseph Messina DO - Last Filed: 04/28/22 16:13> Lab Data Labs: Lab Results 04/28/22 04/28/22 04/28/22 Range/Units 13:18 14:00 14:00 WBC 8.0 (4.5-11.0) X10^3/uL RBC 4.26 (4.0-5.2) X10^6/uL Hgb 12.7 (12.0-16.0) g/dL Hct 38.3 (36-46) % MCV 90.0 (80-100) fL MCH 29.8 (26-34) PG MCHC 33.2 (30-36) % RDW 13.9 (11.6-14.8) % Plt Count 262 (150-400) X10^3/uL Neut % (Auto) 68.1 (50-75) % Lymph % (Auto) 21.9 L (25-40) % Mcleod % (Auto) 7.6 (3-14) % Eos % (Auto) 1.8 L (2-4) % Baso % (Auto) 0.6 (0-2) % Neut # (Auto) 5500 (8321-5026) /uL Lymph # (Auto) 1800 (9988-9157) /uL Mcleod # (Auto) 600 (0-900) /uL Eos # (Auto) 100 (0-450) /uL Baso # (Auto) 0 (0-100) /uL Sodium 142 (137-145) mmol/L Potassium 4.0 (3.4-5.1) mmol/L Chloride 109 H (98-107) mmol/L Carbon Dioxide 27 (22-32) mmol/L BUN 14 (7-17) mg/dL Creatinine 0.49 L (0.52-1.04) mg/dL Estimated GFR > 60 (>60) mL/min BUN/Creatinine Ratio 28.6 H (6-22) Glucose 89 (70-100) mg/dL Calcium 8.8 (8.4-10.2) mg/dL Total Bilirubin 0.4 (0.2-1.3) mg/dL AST 20 (14-36) IU/L ALT 14 (<35) IU/L Alkaline Phosphatase 54 (38-126) U/L Total Protein 7.8 (6.3-8.2) g/dL Albumin 4.5 (3.5-5.0) g/dL Globulin 3.3 (1.7-4.1) g/dL Albumin/Globulin Ratio 1.4 (1.0-2.8) Lipase 121 (23-300) U/L Urine RBC 1-5/hpf (0-5/HPF) Urine WBC 5-10/hpf H (0-5/HPF) Ur Squamous Epith Cells 1-5 /hpf (0-5/HPF) Urine Bacteria Few (2-10) H (None) Urine Mucus 1+ H (Negative) Ur Culture Indicated? Specimen cultured Point of care testing: Urine Dip Bedside Urine Glucose Negative Bedside Urine Bilirubin - Negative Bedside Urine Ketone - Negative Urine Specific Agate 1.020 Bedside Urine Occult Blood ++ Bedside Urine pH 6.0 Bedside Urine Protein +/- 15 Bedside Urine Urobilinogen - Negative Bedside Urine Nitrite - Negative Bedside Urine Leukocytes - Negative Esterase Discharge Plan Departure Patient Disposition: Home Clinical Impression: UTI (urinary tract infection) Instructions: DI for Urinary Tract Infection (UTI) Activity Restrictions/Additional Instructions: You were evaluated in the ED today for right-sided flank pain. your labs were normal. Your CT abdomen pelvis did show some kidney stones on both sides, however none of themAre obstructing at this point and therefore not causing your symptoms. Your urine was positive for a UTI/ kidney infection. You are being started on an antibiotic. Please complete the full course of antibiotics as prescribed. Please follow-up with your PCP as soon as possible. Return to the ED if your symptoms worsen, you are persistently vomiting, you develop a fever or chills. Prescriptions: New cefpodoxime 200 mg tablet 200 mg PO BID 10 Days Qty: 20 0RF Rx Instructions: must administer with a meal/food Referrals: Loni Ryan DO [Primary Care Provider] - Stand Alone Forms: Patient Portal/API <Yoseph Messina DO - Last Filed: 04/28/22 16:13> Cosign ED Attending Cosdonovanature Attestation: Dr Messina Co-Sign Statement: I was available for consultation during this patient's emergency department visit. This chart is signed by myself for administrative purposes only. I did not have direct contact with this patient during this visit. They were seen independently by the APC.
[2022-04-28 15:30] VITALS: BP 118/69; PULSE 69; RESP 20; O2SAT 98
== END 2022-04-28 16:08 | disposition home or self-care (01) ==
PROVIDERS: Emergency Medicine; Emergency Provider Student in an Organized Health Care Education/Training Program; PCP Family Medicine
DX: N39.0 Urinary tract infection, site not specified (principal)
CPT/HCPCS: 36415; 74177; 80053; 81003; 81015; 83690; 85025; 87086; 96361; 96374; 96375; 99284; J1885; J2405; Q9967

== ENCOUNTER 2022-06-13 05:55 | Inpatient (IN) | payer OTHER, SELFPAY ==
[2022-06-13] VITALS (16 sets, daily range): BP systolic 108–136; BP diastolic 61–90; PULSE 52–70; RESP 14–18; TEMP 36.1–36.7; O2SAT 90–100; BMI 27.8; BMI 28.3
--- NOTE | 2022-06-13 | DI.RAD.S_ITS ---
PROCEDURE: XR KUB INDICATIONS: Right ureteral calculus TECHNIQUE: One view of the abdomen acquired. COMPARISON: [facility], , KUB XRAY (1 VIEW ABDOMEN), 01/15/2017, 14:08. FINDINGS: Surgical changes and devices: None. Bowel: Bowel gas pattern is nonobstructive. Fecal stasis throughout the colon is seen. Soft tissues: Calcifications are noted projecting in mid to lower pole of right kidney measures up to 8 mm in size. 7 mm calcification is also seen projecting in the region of midpole left kidney. Visualized solid organ contours appear normal in size. Bones: No suspicious bony lesions. IMPRESSION: Suggestion of bilateral renal calculi. No gross free air. No bowel obstruction. Moderate constipation. Dictated by: Donnie García M.D. on 06/13/2022 at 10:05 Approved by: Donnie García M.D. on 06/13/2022 at 10:07
[2022-06-13 06:38] LABS: Bilirubin Urine UA NEGATIVE (NEGATIVE); Color Urine UA YELLOW; Glucose Urine UA NEGATIVE (Negative); Ketones Urine UA NEGATIVE (NEGATIVE); Leukocyte Esterase Urine UA TRACE (NEGATIVE); Nitrite Urine UA NEGATIVE (Negative); Occult Blood Urine UA 3+ (Negative); Protein Urine UA 1+ (Negative); Specific Gravity Urine UA 1.025 (1.000-1.035); Urobilinogen Urine UA 0.2 E.U./dL (0.2)
[2022-06-13 06:40] LABS: Appearance Urine UA Slightly Cloudy
[2022-06-13] MEDS: KETOROLAC 30 MG/ML VIAL 15 MG IV (07:07)
[2022-06-13] MEDS: ONDANSETRON 4 MG ODT SL (07:07)
[2022-06-13 07:25] LABS: RBC Urine 10-30/HPF (0-5/HPF)
[2022-06-13 07:26] LABS: Bacteria Urine Few (2-10); Culture Indicated Urine Specimen Cultured; Squamous Epithelial Cell Urine 1-5 /HPF (0-5/HPF); WBC Urine 5-10/HPF (0-5/HPF)
[2022-06-13 07:27] LABS: Alanine Aminotransferase 14 IU/L (<35); Albumin 4.4 g/dL (3.5-5.0); Albumin Globulin Ratio 1.6 (1.0-2.8); Alkaline Phosphatase 54 U/L (38-126); Aspartate Aminotransferase 26 IU/L (14-36); BUN Creatinine Ratio 32.7 (6-22); Bilirubin Total 0.5 mg/dL (0.2-1.3); Blood Urea Nitrogen 18 mg/dL (7-17); Calcium 8.8 mg/dL (8.4-10.2); Carbon Dioxide 22 mmol/L (22-32); Chloride 108 mmol/L (98-107); Estimated Glomerular Filt Rate > 60 mL/min (>60); Globulin 2.7 g/dL (1.7-4.1); Glucose 123 mg/dL (70-100); HEMOLYSIS 29 (0-50); Sodium 139 mmol/L (137-145); Total Protein 7.1 g/dL (6.3-8.2)
--- NOTE | 2022-06-13 07:27 | DI.CT.S_ITS ---
PROCEDURE: CT KIDNEY URETER BLADDER (KUB) INDICATIONS: R sided pain eval for stone TECHNIQUE: Axial sections were acquired from the lung bases to the pubic symphysis. Coronal and sagittal reformats were performed. For radiation dose reduction, the following was used: automated exposure control, adjustment of mA and/or kV according to patient size. COMPARISON: [facility], CT, CT KIDNEY URETER BLADDER (KUB), 10/12/2018, 7:09. [facility], CT, KIDNEY/ URETER/BLADDER, 07/21/2014, 10:44. FINDINGS: Image quality: Excellent. Lung bases: Mild bibasilar atelectasis. Stable appearance of bilateral breast implants with unchanged appearance of lateral pericapsular soft tissue density adjacent to the left breast implant. Heart: No significant findings. URINARY: Right Kidney: Numerous scattered small punctate right-sided renal stones are again noted. Largest measures approximately 6 mm in the upper pole of the right kidney measuring 590 Hounsfield units. There is an obstructing 0.9 x 0.7 cm stone in the proximal right ureter near the right ureteropelvic junction. This proximal right ureteral stone measures approximately 540 Hounsfield units. Mild right hydronephrosis. Moderate surrounding inflammatory stranding as well as suggestion of wall thickening of the right renal pelvis. There is mild right perinephric stranding. There is also a 1.9 x 1.4 cm anterior right renal hypodensity that appears new and in close proximity to region of inflammatory change. Right Ureter: No hydroureter or periureteral stranding distal to the proximal right ureteral stone described above. Left Kidney: Multiple tiny and punctate nonobstructing renal stones are again noted in the left kidney. Largest measures 0.6 cm and demonstrates density of approximately 650 Hounsfield units. No perinephric stranding. Redemonstration of renal hypodensities in the left kidney likely representing cysts. No perinephric stranding. No hydronephrosis. Left Ureter: Left ureter is normal in course and caliber. No left periureteral stranding. No left ureteral stone. Bladder: Normal wall thickness. No stones. ABDOMEN: Liver: Unremarkable. Gallbladder: Unremarkable. Biliary ducts: Unremarkable. Pancreas: Unremarkable. Spleen: Unremarkable. Adrenal Glands: Unremarkable. Stomach and Bowel: Stomach, small bowel loops, and colon are unremarkable. Scattered colonic diverticula without acute inflammation. Peritoneum: No abnormal intraperitoneal fluid. No free air. Ventral Wall: There is a fat-containing umbilical hernia without acute inflammation. Abdominal Nodes: No enlarged retroperitoneal or mesenteric lymph nodes. Vessels: Aorta and inferior vena cava are normal in size. PELVIS: Pelvic Organs: Reproductive organs are unremarkable as imaged. Pelvic Nodes: Unremarkable. Miscellaneous: No inguinal hernias are seen. Bones: No acute compression fracture. No suspicious osseous lesions. IMPRESSION: 1. Obstructing 0.9 cm proximal right ureteral stone near the right ureteropelvic junction with moderate associated inflammatory changes of the proximal right ureter, right renal pelvis, and minimally involving the right kidney. Although findings may represent acute inflammatory changes from right hydronephrosis, concurrent infectious uropathy not excluded. Recommend clinical and laboratory correlation. Additionally, new adjacent 1.9 cm renal cortical hypodensity may represent a new renal cyst versus possible early renal abscess if there are symptoms for infection. Recommend short interval follow-up imaging after resolution of acute findings. 2. Redemonstration of numerous bilateral punctate renal stones. No evidence for obstruction in the left kidney. 3. Colonic diverticulosis without acute diverticulitis. Other chronic findings as above Dictated by: Bradly Crawley M.D. on 06/13/2022 at 7:42 Approved by: Bradly Crawley M.D. on 06/13/2022 at 7:56
--- NOTE | 2022-06-13 07:28 | ED.BACK ---
HPI - Back Pain/Injury General Chief Complaint: Back Pain/Injury Stated Complaint: abd pain and vomiting Time Seen by Provider: 06/13/22 07:18 Source: patient Mode of arrival: Ambulatory History of Present Illness HPI Narrative: Patient is a 56-year-old female. A history of renal stones. Has had to have procedures to remove these in the past who is here for evaluation of right-sided flank pain. She states started approximately 0400 hours this morning. Has had nausea and vomiting. No fevers. No diarrhea. She stated that she gave it some time for it to resolve however she states that it feels like there is a lot of pressure in her back. No specific dysuria. Related Data Home Medications Medication Instructions Recorded Confirmed loratadine 10 mg tablet (Claritin) 10 mg PO DAILY 06/13/22 06/13/22 Allergies Allergy/AdvReac Type Severity Reaction Status Date / Time morphine [MORPHINE] Allergy Unknown Verified 04/28/22 13:12 Penicillins [PENICILLINS] Allergy Unknown Verified 04/28/22 13:12 acetaminophen [From Percocet] Allergy Verified 04/28/22 14:35 oxycodone [From Percocet] Allergy Verified 04/28/22 14:35 Review of Systems Constitutional Constitutional: Reports system reviewed and no additional complaints, except as documented Gastrointestinal Gastrointestinal: Reports system reviewed and no additional complaints, except as documented Genitourinary Genitourinary: Reports system reviewed and no additional complaints, except as documented Musculoskeletal Musculoskeletal: Reports system reviewed and no additional complaints, except as documented Integumentary/Breasts Skin/Breast: Reports system reviewed and no additional complaints, except as documented Hematologic/Lymphatic On Anticoagulants: No Patient History Surgical History S/P ureteral stent placement Social History marital status: household members: spouse Smoking Status: Never smoker alcohol intake: current Smoking Status: Never smoker Substance Use Type: does not use Exam Initial Vital Signs Initial Vital Signs: Vital Signs Temperature 97.2 F L 06/13/22 06:05 Pulse Rate 65 06/13/22 06:05 Respiratory Rate 17 06/13/22 06:05 Blood Pressure 125/85 06/13/22 06:05 Pulse Oximetry 100 06/13/22 06:05 Oxygen Delivery Method Room Air 06/13/22 06:05 HENMT Head: normal to inspection and normocephalic Resp Effort & Inspection: normal respiratory effort Auscultation: clear to auscultation bilaterally Cardio Rate: regular rate Rhythm: regular rhythm Back/Spine/Pelvis Back: No CVA tenderness Skin General: no rashes or lesions noted Neuro General: patient alert, patient awake, patient oriented x3 and moves all extremities Extrem General: normal to inspection and capillary refill normal Course Orders Ordered: ED Orders 06/13/22 06:15 Complete Blood Count AUTO DIFF Stat Comprehensive Metabolic Panel Stat Lactate (Lactic Acid) Stat 06/13/22 06:36 Urinalysis and Microscopic Stat Urine Culture Stat 06/13/22 07:27 CT kidney ureter bladder (KUB) Stat 06/13/22 08:36 Blood Culture Stat 06/13/22 08:46 Consult to Urology Stat 06/13/22 09:10 COVID19 -Nasal RAPID Stat Ciprofloxacin (Cipro) 400 mg in 200 mls @ 200 mls/hr IV NOW KARYN Lactated Ringer's (Lactated Ringers) 1,000 mls @ 21 mls/hr IV CONT KARYN Last Admin: 06/13/22 09:45 Dose: 21 mls/hr Documented By: LB Discontinued Medications Hydromorphone HCl (Hydromorphone 1 Mg Inj) 1 mg IV NOW ONE Stop: 06/13/22 07:28 Last Admin: 06/13/22 07:38 Dose: 1 mg Documented By: MORENO Hydromorphone HCl (Hydromorphone 0.5 Mg Inj) 0.5 mg IV NOW ONE Stop: 06/13/22 09:27 Last Admin: 06/13/22 09:41 Dose: 0.5 mg Documented By: MORENO Ceftriaxone Sodium 2,000 mg/ (Sodium Chloride) 100 mls @ 200 mls/hr IV NOW ONE Stop: 06/13/22 08:15 Last Infusion: 06/13/22 09:30 Dose: 0 mls/hr Documented By: Admin: 06/13/22 08:53 Dose: 200 mls/hr Documented By: MORENO Ketorolac Tromethamine (Ketorolac 30 Mg/Ml Vial) 15 mg IV NOW ONE Stop: 06/13/22 06:56 Last Admin: 06/13/22 07:07 Dose: 15 mg Documented By: SHAHRIAR Ondansetron HCl (Ondansetron 4 Mg Odt) 4 mg SL NOW ONE Stop: 06/13/22 06:56 Last Admin: 06/13/22 07:07 Dose: 4 mg Documented By: SHAHRIAR Ondansetron HCl (Ondansetron 4 Mg/2 Ml Inj) 4 mg IV NOW ONE Stop: 06/13/22 08:51 Last Admin: 06/13/22 08:54 Dose: 4 mg Documented By: MORENO Vital Signs Vital signs: Vital Signs - 8 hr 06/13/22 06:05 06/13/22 07:47 06/13/22 06:06 Temperature 97.2 F L Pulse Rate 65 59 L 67 Respiratory Rate 17 18 Blood Pressure 125/85 114/74 Pulse Oximetry 100 95 93 Oxygen Delivery Method Room Air Room Air 06/13/22 06:07 06/13/22 06:07 06/13/22 09:30 Temperature Pulse Rate 67 55 L Respiratory Rate 14 18 Blood Pressure 125/85 123/61 Pulse Oximetry 100 98 Oxygen Delivery Method Room Air Room Air MDM - Back Pain/Injury Lab Data Attestation: I reviewed the patient's lab results. 06/13/22 06:15 06/13/22 06:15 Labs: Lab Results 06/13/22 06/13/22 06/13/22 Range/Units 06:15 06:15 06:15 WBC 7.8 (4.5-11.0) X10^3/uL RBC 4.24 (4.0-5.2) X10^6/uL Hgb 12.9 (12.0-16.0) g/dL Hct 37.7 (36-46) % MCV 88.8 (80-100) fL MCH 30.3 (26-34) PG MCHC 34.2 (30-36) % RDW 13.6 (11.6-14.8) % Plt Count 264 (150-400) X10^3/uL Neut % (Auto) 56.7 (50-75) % Lymph % (Auto) 34.1 (25-40) % [place] % (Auto) 6.6 (3-14) % Eos % (Auto) 2.1 (2-4) % Baso % (Auto) 0.5 (0-2) % Neut # (Auto) 4400 (2981-7727) /uL Lymph # (Auto) 2700 (9061-9806) /uL [place] # (Auto) 500 (0-900) /uL Eos # (Auto) 200 (0-450) /uL Baso # (Auto) 0 (0-100) /uL Sodium 139 (137-145) mmol/L Potassium 4.0 (3.4-5.1) mmol/L Chloride 108 H (98-107) mmol/L Carbon Dioxide 22 (22-32) mmol/L BUN 18 H (7-17) mg/dL Creatinine 0.55 (0.52-1.04) mg/dL Estimated GFR > 60 (>60) mL/min BUN/Creatinine Ratio 32.7 H (6-22) Glucose 123 H (70-100) mg/dL Lactate 1.0 (0.7-2.1) mmol/L Calcium 8.8 (8.4-10.2) mg/dL Total Bilirubin 0.5 (0.2-1.3) mg/dL AST 26 (14-36) IU/L ALT 14 (<35) IU/L Alkaline Phosphatase 54 (38-126) U/L Total Protein 7.1 (6.3-8.2) g/dL Albumin 4.4 (3.5-5.0) g/dL Globulin 2.7 (1.7-4.1) g/dL Albumin/Globulin Ratio 1.6 (1.0-2.8) Urine Color Urine Appearance Urine pH (4.5-8.0) Ur Specific [place] (1.000-1.035) Urine Protein (Negative) Urine Glucose (UA) (Negative) g/dL Urine Ketones (NEGATIVE) Urine Occult Blood (Negative) Urine Nitrate (Negative) Urine Bilirubin (NEGATIVE) Urine Urobilinogen (0.2) E.U./dL Ur Leukocyte Esterase (NEGATIVE) Urine RBC (0-5/HPF) Urine WBC (0-5/HPF) Ur Squamous Epith Cells (0-5/HPF) Urine Bacteria (None) Ur Culture Indicated? SARS-CoV-2 (PCR) (Negative) 06/13/22 06/13/22 Range/Units 06:36 09:10 WBC (4.5-11.0) X10^3/uL RBC (4.0-5.2) X10^6/uL Hgb (12.0-16.0) g/dL Hct (36-46) % MCV (80-100) fL MCH (26-34) PG MCHC (30-36) % RDW (11.6-14.8) % Plt Count (150-400) X10^3/uL Neut % (Auto) (50-75) % Lymph % (Auto) (25-40) % [place] % (Auto) (3-14) % Eos % (Auto) (2-4) % Baso % (Auto) (0-2) % Neut # (Auto) (2835-4585) /uL Lymph # (Auto) (6609-5622) /uL [place] # (Auto) (0-900) /uL Eos # (Auto) (0-450) /uL Baso # (Auto) (0-100) /uL Sodium (137-145) mmol/L Potassium (3.4-5.1) mmol/L Chloride (98-107) mmol/L Carbon Dioxide (22-32) mmol/L BUN (7-17) mg/dL Creatinine (0.52-1.04) mg/dL Estimated GFR (>60) mL/min BUN/Creatinine Ratio (6-22) Glucose (70-100) mg/dL Lactate (0.7-2.1) mmol/L Calcium (8.4-10.2) mg/dL Total Bilirubin (0.2-1.3) mg/dL AST (14-36) IU/L ALT (<35) IU/L Alkaline Phosphatase (38-126) U/L Total Protein (6.3-8.2) g/dL Albumin (3.5-5.0) g/dL Globulin (1.7-4.1) g/dL Albumin/Globulin Ratio (1.0-2.8) Urine Color Yellow Urine Appearance Slightly cloudy Urine pH 6.0 (4.5-8.0) Ur Specific [place] 1.025 (1.000-1.035) Urine Protein 1+ H (Negative) Urine Glucose (UA) Negative (Negative) g/dL Urine Ketones Negative (NEGATIVE) Urine Occult Blood 3+ H (Negative) Urine Nitrate Negative (Negative) Urine Bilirubin Negative (NEGATIVE) Urine Urobilinogen 0.2 (0.2) E.U./dL Ur Leukocyte Esterase Trace H (NEGATIVE) Urine RBC 10-30/hpf H (0-5/HPF) Urine WBC 5-10/hpf H (0-5/HPF) Ur Squamous Epith Cells 1-5 /hpf (0-5/HPF) Urine Bacteria Few (2-10) H (None) Ur Culture Indicated? Specimen cultured SARS-CoV-2 (PCR) Negative (Negative) Urine Dip Bedside Urine Glucose Negative Bedside Urine Bilirubin - Negative Bedside Urine Ketone - Negative Urine Specific [place] 1.025 Bedside Urine Occult Blood +++ Bedside Urine pH 5.5 Bedside Urine Protein + 30 Bedside Urine Urobilinogen - Negative Bedside Urine Nitrite - Negative Bedside Urine Leukocytes - Negative Esterase Imaging Data CT scan - abdomen/pelvis: Radiologist's Impression: PROCEDURE:? CT KIDNEY URETER BLADDER (KUB) ? INDICATIONS:? R sided pain eval for stone ? TECHNIQUE:? Axial sections were acquired from the lung bases to the pubic symphysis.? Coronal and sagittal reformats were performed.? For radiation dose reduction, the following was used: ?automated exposure control, adjustment of mA and/or kV according to patient size.? ? COMPARISON:? [facility], CT, CT KIDNEY URETER BLADDER (KUB), 10/12/2018, 7:09.? [facility], CT, KIDNEY/ URETER/BLADDER, 07/21/2014, 10:44. ? FINDINGS:? Image quality:? Excellent.? ? Lung bases:? Mild bibasilar atelectasis.? Stable appearance of bilateral breast implants with unchanged appearance of lateral pericapsular soft tissue density adjacent to the left breast implant. Heart:? No significant findings. ? URINARY: Right Kidney:? Numerous scattered small punctate right-sided renal stones are again noted.? Largest measures approximately 6 mm in the upper pole of the right kidney measuring 590 Hounsfield units.? There is an obstructing 0.9 x 0.7 cm stone in the proximal right ureter near the right ureteropelvic junction.? This proximal right ureteral stone measures approximately 540 Hounsfield units.? Mild right hydronephrosis.? Moderate surrounding inflammatory stranding as well as suggestion of wall thickening of the right renal pelvis.? There is mild right perinephric stranding.? There is also a 1.9 x 1.4 cm anterior right renal hypodensity that appears new and in close proximity to region of inflammatory change. Right Ureter:? No hydroureter or periureteral stranding distal to the proximal right ureteral stone described above.? ? Left Kidney:? Multiple tiny and punctate nonobstructing renal stones are again noted in the left kidney.? Largest measures 0.6 cm and demonstrates density of approximately 650 Hounsfield units.? No perinephric stranding.? Redemonstration of renal hypodensities in the left kidney likely representing cysts.? No perinephric stranding.? No hydronephrosis. Left Ureter:? Left ureter is normal in course and caliber.? No left periureteral stranding.? No left ureteral stone.? ? Bladder:? Normal wall thickness. No stones. ? ? ? ABDOMEN: Liver:? Unremarkable.? ? Gallbladder:? Unremarkable.? ? Biliary ducts:? Unremarkable.? ? Pancreas:? Unremarkable.? ? Spleen:? Unremarkable.? ? Adrenal Glands:? Unremarkable.? ? ? Stomach and Bowel:? Stomach, small bowel loops, and colon are unremarkable.? Scattered colonic diverticula without acute inflammation. Peritoneum:? No abnormal intraperitoneal fluid.? No free air.? ? Ventral Wall: There is a fat-containing umbilical hernia without acute inflammation. Abdominal Nodes:? No enlarged retroperitoneal or mesenteric lymph nodes.? Vessels:? Aorta and inferior vena cava are normal in size.? ? PELVIS: Pelvic Organs:? Reproductive organs are unremarkable as imaged. Pelvic Nodes: Unremarkable. Miscellaneous: No inguinal hernias are seen. ? ? ? Bones:? No acute compression fracture.? No suspicious osseous lesions. ? IMPRESSION:? ? 1. Obstructing 0.9 cm proximal right ureteral stone near the right ureteropelvic junction with moderate associated inflammatory changes of the proximal right ureter, right renal pelvis, and minimally involving the right kidney.? Although findings may represent acute inflammatory changes from right hydronephrosis, concurrent infectious uropathy not excluded.? Recommend clinical and laboratory correlation.? Additionally, new adjacent 1.9 cm renal cortical hypodensity may represent a new renal cyst versus possible early renal abscess if there are symptoms for infection.? Recommend short interval follow-up imaging after resolution of acute findings. ? 2. Redemonstration of numerous bilateral punctate renal stones.? No evidence for obstruction in the left kidney. ? 3. Colonic diverticulosis without acute diverticulitis. ? Other chronic findings as above MDM Narrative Medical decision making narrative: Patient does have bacteria and white blood cells in her urine. She has a large proximal right-sided ureteral stone with findings that are consistent with either a new renal cyst versus an abscess. Kidney function is unremarkable and she does not have leukocytosis. She was started on antibiotics. I discuss the case with Dr. Huffman on-call for Urology who will admit for surgical intervention. I did discuss this with the patient herself. She expressed understanding and agreement. Discharge Plan Departure Patient Disposition: Admitted to Surgery Clinical Impression: Right ureteral stone, Urinary tract infection Admit Date/Time: 06/13/22 09:36 Admit Provider: Tiffanie Huffman
[2022-06-13] MEDS: HYDROMORPHONE 1 MG INJ IV (07:38)
[2022-06-13 07:46] LABS: Add Manual Diff / Slide Review NO; Basophils Absolute Auto 0 /uL (0-100); Basophils Percent Auto 0.5 % (0-2); Eosinophils Absolute Auto 200 /uL (0-450); Eosinophils Percent Auto 2.1 % (2-4); Hematocrit 37.7 % (36-46); Hemoglobin 12.9 g/dL (12.0-16.0); Lymphocytes Absolute Auto 2700 /uL (1100-4500); Lymphocytes Percent Auto 34.1 % (25-40); Mean Corpuscular HGB Conc 34.2 % (30-36); Mean Corpuscular Hemoglobin 30.3 PG (26-34); Mean Corpuscular Volume 88.8 fL (80-100); Monocytes Absolute Auto 500 /uL (0-900); Monocytes Percent Auto 6.6 % (3-14); Neutrophils Absolute Auto 4400 /uL (1500-7000); Neutrophils Percent Auto 56.7 % (50-75); Platelet Count 264 X10^3/uL (150-400); Red Blood Cell Count 4.24 X10^6/uL (4.0-5.2); Red Cell Distribution Width 13.6 % (11.6-14.8); White Blood Cell Count 7.8 X10^3/uL (4.5-11.0)
[2022-06-13] MEDS: cefTRIAXone 2,000 MG in SODIUM CHLORIDE 0.9% 100 ML 200 MG IV (08:53)
[2022-06-13] MEDS: ONDANSETRON 4 MG/2 ML INJ IV ×4 (08:54→23:02)
--- NOTE | 2022-06-13 09:16 | P.HP_ITS ---
History of Present Illness History of Present Illness Date Patient Seen: 06/13/22 Time Patient Seen: 09:00 Date of Onset of Symptoms: 06/13/22 Chief complaint: abd pain and vomiting Narrative: 56-year-old woman presenting today to [facility] ED after awakening at 4:00 a.m. with severe right-sided flank and abdominal pain. The pain was very reminiscent of previous episodes of symptomatic stone. She denies fever, chills, or hematuria. Urinalysis demonstrated 3+ blood, trace leukocyte esterase, 1+ leukocytes, few bacteria, and 1-[address] KUB demonstrated an obstructing 9 mm right UPJ/proximal ureteral calculus and several bilateral nonobstructing renal calculi. WBC was 7.8 without left shift. Other labs were not indicative of sepsis. She was afebrile on presentation. [facility] Surgical History S/P ureteral stent placement Social History marital status: household members: spouse Smoking Status: Never smoker alcohol intake: current Meds Home Medications and Allergies Home Medications Medication Instructions Recorded Confirmed Type loratadine 10 mg tablet (Claritin) 10 mg PO DAILY 06/13/22 06/13/22 History Allergies Allergy/AdvReac Type Severity Reaction Status Date / Time morphine [MORPHINE] Allergy Unknown Verified 04/28/22 13:12 Penicillins [PENICILLINS] Allergy Unknown Verified 04/28/22 13:12 acetaminophen [From Percocet] Allergy Verified 04/28/22 14:35 oxycodone [From Percocet] Allergy Verified 04/28/22 14:35 Review of Systems Review of Systems ROS: Yes All systems reviewed with the patient and are negative except as otherwise documented Exam Vital Signs (past 8 hours): - 06/13/22 06:05 06/13/22 07:47 Temperature 97.2 F L Pulse Rate 65 59 L Respiratory Rate 17 18 Blood Pressure 125/85 114/74 Pulse Oximetry 100 95 Oxygen Delivery Method Room Air Room Air Oxygen Delivery Method Room Air Narrative Exam Narrative: She is a well-developed, mildly over nourished middle-aged female in [id number] distress lying in the ED gurney. Head/neck-sclera clear and pupils are equal and round. No visible evidence of adenopathy or JVD. Chest-equal and unlabored expansion bilaterally. Heart-normal sinus rhythm. Objective Labs 06/13/22 06:15 06/13/22 06:15 Labs: Laboratory Results - last 24 hr 06/13/22 06/13/22 06/13/22 06:15 06:15 06:15 WBC 7.8 RBC 4.24 Hgb 12.9 Hct 37.7 MCV 88.8 MCH 30.3 MCHC 34.2 RDW 13.6 Plt Count 264 Neut % (Auto) 56.7 Lymph % (Auto) 34.1 [place] % (Auto) 6.6 Eos % (Auto) 2.1 Baso % (Auto) 0.5 Neut # (Auto) 4400 Lymph # (Auto) 2700 [place] # (Auto) 500 Eos # (Auto) 200 Baso # (Auto) 0 Sodium 139 Potassium 4.0 Chloride 108 H Carbon Dioxide 22 BUN 18 H Creatinine 0.55 Estimated GFR > 60 BUN/Creatinine Ratio 32.7 H Glucose 123 H Lactate 1.0 Calcium 8.8 Total Bilirubin 0.5 AST 26 ALT 14 Alkaline Phosphatase 54 Total Protein 7.1 Albumin 4.4 Globulin 2.7 Albumin/Globulin Ratio 1.6 Urine Color Urine Appearance Urine pH Ur Specific Midnight Urine Protein Urine Glucose (UA) Urine Ketones Urine Occult Blood Urine Nitrate Urine Bilirubin Urine Urobilinogen Ur Leukocyte Esterase Urine RBC Urine WBC Ur Squamous Epith Cells Urine Bacteria Ur Culture Indicated? 06/13/22 06:36 WBC RBC Hgb Hct MCV MCH MCHC RDW Plt Count Neut % (Auto) Lymph % (Auto) [place] % (Auto) Eos % (Auto) Baso % (Auto) Neut # (Auto) Lymph # (Auto) [place] # (Auto) Eos # (Auto) Baso # (Auto) Sodium Potassium Chloride Carbon Dioxide BUN Creatinine Estimated GFR BUN/Creatinine Ratio Glucose Lactate Calcium Total Bilirubin AST ALT Alkaline Phosphatase Total Protein Albumin Globulin Albumin/Globulin Ratio Urine Color Yellow Urine Appearance Slightly cloudy Urine pH 6.0 Ur Specific [place] 1.025 Urine Protein 1+ H Urine Glucose (UA) Negative Urine Ketones Negative Urine Occult Blood 3+ H Urine Nitrate Negative Urine Bilirubin Negative Urine Urobilinogen 0.2 Ur Leukocyte Esterase Trace H Urine RBC 10-30/hpf H Urine WBC 5-10/hpf H Ur Squamous Epith Cells 1-5 /hpf Urine Bacteria Few (2-10) H Ur Culture Indicated? Specimen cultured Assessment & Plan Assessment & Plan narrative: Assessment: 1. Obstructing 9 mm right UPJ/proximal ureteral calculus. 2. Intractable right renal colic. 3. Possible UTI. 4. Bilateral nephrolithiasis. 5. History of recurrent nephrolithiasis. Plan: 1. Discussion, and informed consent today for urgent cystoscopy/placement right ureteral stent. 2. Urine culture-pending. 3.
[2022-06-13 09:41] LABS: COVID19 -Nasal RAPID Negative (Negative)
[2022-06-13] MEDS: HYDROMORPHONE 0.5 MG INJ IV ×2 (09:41→17:19)
[2022-06-13] MEDS: LACTATED RINGERS 1,000 ML 21 ML IV ×2 (09:45→12:07)
--- NOTE | 2022-06-13 10:09 | SUR.PREOP ---
Report from [facility]INU Mejias. Pt brought to preop from ER. Pt with N/V despite zofran x2. Fluids open. Aromatherapy applied. Pt c/o right flank pain 07/19. pt had dilaudid at 0941.
--- NOTE | 2022-06-13 11:21 | PM.PREOP ---
Pre-operative Note COVID-19 Criteria for continued procedure: Expected advancement of disease process, Possibility delay results in more complex future surgery or treatment, Increased loss of function, Continuing or worsening of significant or severe pain, Delay expected to result in less-positive ultimate med/surg outcome and Non-surgical alternatives not available or appropriate per current SOC Interval Note History & Physical reviewed/Exam performed by Physician: Yes Changes to H&P: No
--- NOTE | 2022-06-13 12:09 | SUR.OPER ---
Lithotomy on padded OR bed, head on pillow, arms secured on padded arm boards at <90 degrees abduction. Legs secured in padded yellow fins stirrups.
[2022-06-13] MEDS: ACETAMINOPHEN IV 1,000 MG/100 ML VIAL 400 MG IV (13:19)
[2022-06-13] MEDS: SCOPOLAMINE 1 PATCH TOP (13:32)
[2022-06-13] MEDS: HYDROMORPHONE 2 MG TABLET 4 MG PO (13:47)
[2022-06-13] MEDS: hydrOXYzine 50 MG/ML INJ IM (13:48)
--- NOTE | 2022-06-13 15:26 | P.HP_ITS ---
History of Present Illness History of Present Illness Date Patient Seen: 06/13/22 Time Patient Seen: 17:08 Chief complaint: abd pain and vomiting Narrative: Patria Perez is a 56yo F with PMH of kidney stones who presented to the ED with NV and found to have a 9mm obstructing stone this morning. Taken by urology for urgent stent placement and had intractable NV and pain postop in the PACU. Admitted to medicine service for management. Patient currently is in exquisite pain in her abdomen and groin due to renal colic with spasms she says. Also nauseated but not vomiting at the moment. She says she has had multiple kidney stones in the past and doesn't have issues with anesthesia causing NV. She denies CP, SOB, or diarrhea. PFSH Surgical History S/P ureteral stent placement Social History marital status: household members: spouse Smoking Status: Never smoker alcohol intake: current Meds Home Medications and Allergies Home Medications Medication Instructions Recorded Confirmed Type ciprofloxacin HCl 250 mg tablet 250 mg PO Q12H #10 tabs 06/13/22 Rx loratadine 10 mg tablet (Claritin) 10 mg PO DAILY 06/13/22 06/13/22 History tramadol 50 mg tablet 50 mg PO Q6H PRN pain #20 tabs 06/13/22 Rx Allergies Allergy/AdvReac Type Severity Reaction Status Date / Time morphine [MORPHINE] Allergy Unknown Verified 04/28/22 13:12 Penicillins [PENICILLINS] Allergy Unknown Verified 04/28/22 13:12 oxycodone [From Percocet] Allergy Verified 04/28/22 14:35 Review of Systems Review of Systems Narrative: All other systems reviewed with the patient and are negative unless otherwise stated. Exam Vital Signs (past 8 hours): - 06/13/22 07:47 06/13/22 09:30 06/13/22 09:57 Temperature 97.2 F L Pulse Rate 59 L 55 L 52 L Respiratory Rate 18 18 14 Blood Pressure 114/74 123/61 136/90 Pulse Oximetry 95 98 96 Oxygen Delivery Method Room Air Room Air Room Air Oxygen Flow Rate 06/13/22 12:24 06/13/22 12:29 06/13/22 12:55 Temperature 96.9 F L 98.1 F Pulse Rate 70 58 L 54 L Respiratory Rate 16 18 14 Blood Pressure 117/81 121/83 126/79 Pulse Oximetry 90 L 99 94 Oxygen Delivery Method Room Air Nasal Cannula Nasal Cannula Room Air Oxygen Flow Rate 2 2 06/13/22 12:34 06/13/22 12:39 Temperature 97.7 F Pulse Rate 59 L 58 L Respiratory Rate 16 16 Blood Pressure 120/82 118/80 Pulse Oximetry 99 94 Oxygen Delivery Method Nasal Cannula Room Air Oxygen Flow Rate 2 Oxygen Delivery Method Room Air Oxygen Flow Rate 2 Narrative Exam Narrative: GEN: Appears nauseated and in mild distress HEENT: moist mucous membranes, PERRL NECK: trachea midline, no JVD CV: regular rate and rhythm, no murmurs PULM: clear bilaterally ABD: soft, diffusely tender to palpation, guarding present, nondistended, no organomegaly EXT: warm and well perfused with no edema NEURO: awake, alert, oriented, no focal deficits Objective Labs 06/13/22 06:15 06/13/22 06:15 Labs: Laboratory Results - last 24 hr 06/13/22 06/13/22 06/13/22 06:15 06:15 06:15 WBC 7.8 RBC 4.24 Hgb 12.9 Hct 37.7 MCV 88.8 MCH 30.3 MCHC 34.2 RDW 13.6 Plt Count 264 Neut % (Auto) 56.7 Lymph % (Auto) 34.1 [place] % (Auto) 6.6 Eos % (Auto) 2.1 Baso % (Auto) 0.5 Neut # (Auto) 4400 Lymph # (Auto) 2700 [place] # (Auto) 500 Eos # (Auto) 200 Baso # (Auto) 0 Sodium 139 Potassium 4.0 Chloride 108 H Carbon Dioxide 22 BUN 18 H Creatinine 0.55 Estimated GFR > 60 BUN/Creatinine Ratio 32.7 H Glucose 123 H Lactate 1.0 Calcium 8.8 Total Bilirubin 0.5 AST 26 ALT 14 Alkaline Phosphatase 54 Total Protein 7.1 Albumin 4.4 Globulin 2.7 Albumin/Globulin Ratio 1.6 Urine Color Urine Appearance Urine pH Ur Specific [place] Urine Protein Urine Glucose (UA) Urine Ketones Urine Occult Blood Urine Nitrate Urine Bilirubin Urine Urobilinogen Ur Leukocyte Esterase Urine RBC Urine WBC Ur Squamous Epith Cells Urine Bacteria Ur Culture Indicated? SARS-CoV-2 (PCR) 06/13/22 06/13/22 06:36 09:10 WBC RBC Hgb Hct MCV MCH MCHC RDW Plt Count Neut % (Auto) Lymph % (Auto) [place] % (Auto) Eos % (Auto) Baso % (Auto) Neut # (Auto) Lymph # (Auto) [place] # (Auto) Eos # (Auto) Baso # (Auto) Sodium Potassium Chloride Carbon Dioxide BUN Creatinine Estimated GFR BUN/Creatinine Ratio Glucose Lactate Calcium Total Bilirubin AST ALT Alkaline Phosphatase Total Protein Albumin Globulin Albumin/Globulin Ratio Urine Color Yellow Urine Appearance Slightly cloudy Urine pH 6.0 Ur Specific [place] 1.025 Urine Protein 1+ H Urine Glucose (UA) Negative Urine Ketones Negative Urine Occult Blood 3+ H Urine Nitrate Negative Urine Bilirubin Negative Urine Urobilinogen 0.2 Ur Leukocyte Esterase Trace H Urine RBC 10-30/hpf H Urine WBC 5-10/hpf H Ur Squamous Epith Cells 1-5 /hpf Urine Bacteria Few (2-10) H Ur Culture Indicated? Specimen cultured SARS-CoV-2 (PCR) Negative Assessment & Plan Assessment & Plan narrative: # postop intractable nausea and vomiting -patient developed nausea vomiting and PACU following ureteral stent placement -vomiting did not improve with Zofran -add Reglan IV, Ativan IV as needed -continue IV fluids # 9 mm proximal right ureteral stone s/p ureteral stent -Dr. Huffman urology place stent on 06/13 -urology following -Dilaudid IV as needed for pain -consider obtaining repeat CT abd if pain and NV not improving # possible UTI -UA with pyuria -continue rocephin 1g daily -f/u urine culture # possible renal cyst vs abscess -per CT right 1.9cm renal cortical hypodensity which may represent cyst vs abscess -procal negative, WBC normal -continue abx Code status is full code. COVID negative. DVT prophylaxis with SCDs. Proxy is . I have reviewed home meds and used all available resources to reconcile the home meds. This patient will be admitted as observation and will require less than 2 midnights of hospital time to treat intractable nausea vomiting.
--- NOTE | 2022-06-13 15:37 | SUR.PHASEII ---
1345 - Pt remedicated for cont'd nausea with vistaril. scopalamine patch remains in place. zofran 8 mg iv given prior to phase 2. Pt restless, rocking in bed. 1430 - pt resting intermittently, pale and cont's to c/o N&V. Allowed to sleep for now. 1500 - ambulates to bathroom. pt pale and continues to c/o N&V. Dr Seals notified of pt's condition and admission orders received
--- NOTE | 2022-06-13 15:48 | SUR.PHASEII ---
Resting intermittently. at bedside. Family notified to bed assignment - rm [id number]
[2022-06-13 16:21] LABS: Procalcitonin 0.03 ng/mL (<0.5)
--- NOTE | 2022-06-13 16:35 | PC.NURSE ---
Day shift: Patient came up to unit from PACU via stretcher with and PACU nurse. VS WNL. Patient is pale, having significant nausea and pain. She states spasms in her bladder and ureter. Up to BR with standby assist. Voided urine. She states feeling of being unable to completely empty her bladder. Will continue to monitor.
[2022-06-13] MEDS: LORazepam 2 MG/ML INJ 1 MG IV (17:17)
[2022-06-13] MEDS: LACTATED RINGERS 1,000 ML 100 ML IV (17:21)
[2022-06-13] MEDS: KETOROLAC 30 MG/ML VIAL IV ×2 (17:21→23:01)
[2022-06-14] MEDS: ONDANSETRON 4 MG/2 ML INJ IV ×2 (02:51→05:53)
[2022-06-14] MEDS: LACTATED RINGERS 1,000 ML 100 ML IV (04:03)
[2022-06-14] MEDS: KETOROLAC 30 MG/ML VIAL IV ×2 (04:03→09:38)
[2022-06-14 05:51] LABS: Add Manual Diff / Slide Review NO; Basophils Absolute Auto 0 /uL (0-100); Basophils Percent Auto 0.2 % (0-2); Eosinophils Absolute Auto 0 /uL (0-450); Eosinophils Percent Auto 0.1 % (2-4); Hematocrit 38.5 % (36-46); Hemoglobin 12.9 g/dL (12.0-16.0); Lymphocytes Absolute Auto 1900 /uL (1100-4500); Lymphocytes Percent Auto 12.8 % (25-40); Mean Corpuscular HGB Conc 33.5 % (30-36); Mean Corpuscular Hemoglobin 30.2 PG (26-34); Mean Corpuscular Volume 90.2 fL (80-100); Monocytes Absolute Auto 1000 /uL (0-900); Monocytes Percent Auto 6.7 % (3-14); Neutrophils Absolute Auto 12100 /uL (1500-7000); Neutrophils Percent Auto 80.2 % (50-75); Platelet Count 234 X10^3/uL (150-400); Red Blood Cell Count 4.27 X10^6/uL (4.0-5.2); Red Cell Distribution Width 13.7 % (11.6-14.8); White Blood Cell Count 15.1 X10^3/uL (4.5-11.0)
[2022-06-14 06:00] VITALS: BP 119/74; PULSE 76; RESP 16; TEMP 36.8; O2SAT 99
[2022-06-14 06:10] LABS: Blood Urea Nitrogen 12 mg/dL (7-17); Calcium 8.8 mg/dL (8.4-10.2); Carbon Dioxide 24 mmol/L (22-32); Chloride 106 mmol/L (98-107); Estimated Glomerular Filt Rate > 60 mL/min (>60); Glucose 92 mg/dL (70-100); HEMOLYSIS < 15 (0-50); Potassium 3.6 mmol/L (3.4-5.1); Sodium 138 mmol/L (137-145)
[2022-06-14 09:17] LABS: Procalcitonin 0.03 ng/mL (<0.5)
[2022-06-14] MEDS: HYDROMORPHONE 1 MG INJ IV ×2 (09:37→14:03)
[2022-06-14] MEDS: LORATADINE 10 MG TABLET PO (09:38)
[2022-06-14] MEDS: cefTRIAXone 1,000 MG in SODIUM CHLORIDE 0.9% 100 ML 200 MG IV (09:39)
--- NOTE | 2022-06-14 11:22 | CM.DANOTE ---
Initial Discharge Assessment Note: Case reviewed, met with patient. Introduced self and role. Payer: [employer] and self pay PCP: Loni Ryan, Urologist-Dr Huffman 56 year old admitted for 9 mm obstructing stone, urology placed a stent. Postop pain, intractable N/V and possible UTI. Patient is independent in ADLs and lives with spouse in [place]. No needs identified on dc. Plan: When medically cleared, discharge home to care of spouse. UNRULY Discharge Planning/Care Management CM Discharge Assessment Start: 06/14/22 11:13 Freq: Status: Active Protocol: Document 06/14/22 11:13 (Rec: 06/14/22 11:22 [id number]) Discharge Planning Assessment Assigned Personal Lines Advisor Marcela Quiroz RN/RANDOLPHP Advance Directives? Yes Advance Directives on File No History Provided By Patient,Medical Record Prior Living Arrangements House Household Members spouse Type of transporation used prior to Drives own vehicle admit Independent with ADL's Yes Is patient alert and oriented? Yes Barriers to Discharge No Discharge Plan Home Referrals Initiated None needed Review Status In Process Next Review Type Continued Stay Review
[2022-06-14 14:00] VITALS: BP 107/70; PULSE 82; RESP 17; TEMP 36.6; O2SAT 96
--- NOTE | 2022-06-14 15:04 | P.DS_ITS ---
History of Present Illness History of Present Illness Date Patient Seen: 06/14/22 Chief complaint: abd pain and vomiting Discharge Providers Provider Date of admission: 06/13/22 09:36 Discharge Date: 06/14/22 Primary care physician: Loni Ryna DO Consults: 06/13/22 08:46 Consult to Urology Stat Comment: Consulting Provider: Tiffanie Huffman Reason for consultation: renal stone Has provider been notified: Yes Discharge provider: Carmen Pimentel MD Summary Hospital Course Discharge Diagnosis: Postop intractable nausea and vomiting 9 mm proximal right ureteral stone s/p ureteral stent Dr. Huffman urology place stent on 06/13 Concern for UTI, mixed rere on culture only UA with pyuria Possible renal cyst vs abscess (CT right 1.9cm renal cortical hypodensity) Hospital Course: Patria Perez is a 56yo F with PMH of kidney stones who presented to the ED with NV and found to have a 9mm obstructing stone this morning. Taken by urology for urgent stent placement and had intractable NV and pain postop in the PACU. Admitted to medicine service for management. Patient was in exquisite pain in her abdomen and groin due to renal colic with spasms she stated. Also nauseated but not vomiting at time of admission. She stated she had multiple kidney stones in the past and doesn't have issues with anesthesia causing NV. She denied CP, SOB, or diarrhea. Patient was given antibiotic coverage with intravenous ceftriaxone. This will be transitioned to oral Cipro on discharge. Nausea was treated with scopolamine patch and ondansetron, Reglan and Ativan. Dilaudid was given for pain intravenously and orally. Once patient's symptoms had settled to the level able to be tolerated for discharge, patient requested discharge. She is to make a follow-up appointment on discharge with her Urologist and antibiotics and pain medicine had already been prescribed by Urology for her discharge medications. Scopolamine patch and ondansetron will also be added to the prescriptions. Status at Discharge Cognitive/behavioral status at discharge: at baseline, oriented Functional status at discharge: independent ambulation Overall status at discharge: patient is progressing back to baseline Time Spent with Patient Time spent: Greater than 30 minutes Exam Vital Signs (past 8 hours): - 06/14/22 14:00 Temperature 97.8 F Pulse Rate 82 Respiratory Rate 17 Blood Pressure 107/70 Pulse Oximetry 96 Oxygen Flow Rate 0 Oxygen Delivery Method Room Air Oxygen Flow Rate 0 Narrative Exam Narrative: GEN:? In no acute medical distress HEENT: moist mucous membranes, PERRL NECK: trachea midline, no JVD CV: regular rate and rhythm, no murmurs PULM: clear bilaterally ABD: soft, minimal tender to palpation, bowel sounds normal EXT: warm and well perfused with no edema NEURO: awake, alert, oriented, no focal deficits Objective Labs 06/14/22 05:13 06/14/22 05:13 Labs: Laboratory Results - last 24 hr 06/13/22 06/13/22 06/14/22 06:15 06:15 05:13 WBC 15.1 H D RBC 4.27 Hgb 12.9 Hct 38.5 MCV 90.2 MCH 30.2 MCHC 33.5 RDW 13.7 Plt Count 234 Neut % (Auto) 80.2 H D Lymph % (Auto) 12.8 L D [place] % (Auto) 6.7 Eos % (Auto) 0.1 L Baso % (Auto) 0.2 Neut # (Auto) 81721 H Lymph # (Auto) 1900 [place] # (Auto) 1000 H Eos # (Auto) 0 Baso # (Auto) 0 Sodium Potassium Chloride Carbon Dioxide BUN Creatinine Estimated GFR BUN/Creatinine Ratio Glucose Calcium Magnesium 2.0 Procalcitonin 0.03 06/14/22 06/14/22 05:13 05:13 WBC RBC Hgb Hct MCV MCH MCHC RDW Plt Count Neut % (Auto) Lymph % (Auto) [place] % (Auto) Eos % (Auto) Baso % (Auto) Neut # (Auto) Lymph # (Auto) [place] # (Auto) Eos # (Auto) Baso # (Auto) Sodium 138 Potassium 3.6 Chloride 106 Carbon Dioxide 24 BUN 12 Creatinine 0.60 Estimated GFR > 60 BUN/Creatinine Ratio 20.0 Glucose 92 Calcium 8.8 Magnesium Procalcitonin 0.03 PFSH Surgical History S/P ureteral stent placement Social History marital status: household members: spouse Smoking Status: Never smoker alcohol intake: current Discharge Plan Discharge Plan Patient Disposition: Home Provider Discharge Comment: Contact the urology clinic 06/16/2022 to schedule follow-up appointment. Discharge orders & Medications Prescriptions: New ciprofloxacin HCl 250 mg tablet 250 mg PO Q12H Qty: 10 0RF tramadol 50 mg tablet 50 mg PO Q6H PRN (Reason: pain) Qty: 20 0RF scopolamine base 1 mg over 3 days patch 3 day 1 patch transdermal Q3D MDD 1 patch per 72 hours PRN (Reason: nausea and vomiting) Qty: 4 0RF ondansetron 4 mg tablet,disintegrating 4 mg PO Q8H PRN (Reason: nausea and vomiting) Qty: 10 0RF Continued loratadine [Claritin] 10 mg Tablet 10 mg PO DAILY Follow up/Referrals: Tiffanie Huffman MD [Physician] - Loni Ryan DO [Primary Care Provider] - Diet/Activity/Treatments Diet: Diet as Tolerated Activity: No restrictions beginning 06/14/2022. Skin/Wound/Dressing Care Report to your healthcare provider any signs of infection, such as:: chills, fever, night sweats, increased pain and unusual drainage Visit Report/Discharge Packet Instructions: DI for Cystoscopy, DI for Prescription Opioid Use Stand Alone Forms: Surgery Discharge Discharge Data Primary Care Provider: Loni Ryan Attending Provider: Tiffanie Huffman Admit Date/Time: 06/13/22 09:36 Quality VTE Deep Vein Thrombosis/Pulmonary Embolism Present on Admission: No
--- NOTE | 2022-06-14 16:13 | PC.NURSE ---
Pt discharged home with abx and px medication. Pt verbalized understanding of D/C instructions, how to take abx, when to follow up with urology and PCP, when to return to the ED if needed such as uncontrolled pain, N/V, fever, chills, and difficulties urinating. All questions answered at the time of discharge. All belongings sent home with pt including: nose piercing, eyebrow piercing, purse, wallet, cellphone, clothing, and shoes.
--- NOTE | 2022-06-25 07:52 | PM.OP.1 ---
Operative Date/Time/Diagnoses Date of procedure: 06/13/22 Time of procedure: 11:30 Pre-op diagnosis: 1. Obstructing 9 mm right proximal ureteral calculus. 2. Intractable right colic. 3. History of recurrent nephrolithiasis. Post-op diagnosis: same Procedure & Clinicians Procedure: 1. Cystoscopy/right ureteral stone manipulation without removal. 2. Cystoscopy/placement right ureteral stent (7 [place] by Same procedure as scheduled: Yes Indications: 1. Obstructing 9 mm right proximal ureteral calculus. 2. Intractable right renal colic. 3. History of recurrent nephrolithiasis. Surgeon: Tiffanie Huffman Click Yes if Unassisted: Yes Anesthesia Type: General Operative Notes Findings: 1. Normal caliber urethra without mass, lesion, or obstruction. 2. Bladder-normal urothelium throughout. Normal position of bilateral ureteral orifices. Modest amount of obstructive efflux seen following advancement of ureteral guidewire and placement of ureteral stent on the right. Closure Type: not applicable Specimen(s): none sent Applied: other (Seven [place] 22-32 cm multi-length stent.) Estimated Blood Loss (mL): 0 Procedure in detail: The patient was positioned in supine was administered general anesthesia. The lower abdomen, groin, and genitalia were then prepped and draped in sterile fashion. The 22 [place] panendoscope was then passed the lower urinary tract with the findings as described above. A 0.35 hybrid guidewire was then selected and advanced into the working channel of the scope and then into the right collecting system under direct and fluoroscopic guidance. He required careful manipulation and repositioning for advancement proximally beyond the stone. Next, a 7 [place] by 22-32 cm multi-length stent was selected and this was advanced over the hybrid guidewire, again under direct and fluoroscopic guidance. NO RETRIEVAL LINE WAS LEFT ATTACHED. The bladder is then drained completely and the pin endoscope was removed. The patient was repositioned in supine, was awakened, and was transported to recovery in stable condition. Complications: none Post-operative Condition: stable Disposition: PACU Plan for aftercare: 1. Admit to hospitalist service for management of perioperative/postoperative nausea and vomiting. 2. Near future right ESWL and possible right stent.
== END 2022-06-14 16:05 | disposition home or self-care (01) | DRG 660 ==
LOC: ED 08:56 → AC 12:21
PROVIDERS: Emergency Medicine; Neuromusculoskeletal Medicine, Sports Medicine; Student in an Organized Health Care Education/Training Program; Admitting Provider Specialist; Emergency Provider Emergency Medicine; PCP Family Medicine; Referring Provider Emergency Medicine; Visit Provider Specialist
PROC: 0T768DZ Dilation of Right Ureter with Intraluminal Device, Via Natural or Artificial Opening Endoscopic (ICD-10-PCS; principal; 2022-06-13 11:15)
DX: N20.1 Calculus of ureter (principal); N39.0 Urinary tract infection, site not specified; N20.0 Calculus of kidney; R11.2 Nausea with vomiting, unspecified; Z20.822 Contact with and (suspected) exposure to COVID-19
CPT/HCPCS: 36415; 52330; 52332; 74018; 74176; 76000; 80048; 80053; 81001; 81003; 83605; 83735; 84145; 85025; 87040; 87086; 87635; 96365; 96375; 96376; 99222; 99284; C9803; G0378; J0131; J0330; J0696; J1100; J1170; J1885; J2060; J2405; J2704; J3010; J3410

== ENCOUNTER → 2022-06-18 13:10 | Outpatient (CLI) | payer OTHER, SELFPAY ==
[2022-06-13 17:14] VITALS: BMI 28.3
== END ==
PROVIDERS: PCP Family Medicine; Visit Provider Specialist
DX: N39.0 Urinary tract infection, site not specified (principal); N20.2 Calculus of kidney with calculus of ureter; Z96.0 Presence of urogenital implants; Z87.442 Personal history of urinary calculi
CPT/HCPCS: 81002; 87086; 99215

== ENCOUNTER 2022-06-20 07:47 | Day surgery (SDC) | payer OTHER, SELFPAY ==
[2022-06-13 17:14] VITALS: BMI 28.3
[2022-06-20] VITALS (15 sets, daily range): BP systolic 102–122; BP diastolic 68–80; PULSE 56–88; RESP 16–30; TEMP 35.9–36.8; O2SAT 91–98; BMI 28.3
--- NOTE | 2022-06-20 | DI.RAD.S_ITS ---
PROCEDURE: XR KUB INDICATIONS: Right ureteropelvic junction calculus TECHNIQUE: One view of the abdomen acquired. COMPARISON: [facility], CT, CT KIDNEY URETER BLADDER (KUB), 06/13/2022, 7:32. [facility], CR, XR KUB, 06/13/2022, 9:24. FINDINGS: Surgical changes and devices: Interval placement of double-J right ureteral stent. Bowel: Bowel gas pattern is normal. Soft tissues: Multiple soft tissue calcifications project over the bilateral renal shadows compatible with previously described renal stones. There is a 1.2 x 0.7 cm oval calcification noted adjacent to the proximal ureteral stent compatible with previously described obstructing ureteral stone. Visualized solid organ contours appear normal in size. Bones: No suspicious bony lesions. IMPRESSION: Interval placement of double-J right ureteral stent. Bilateral renal calculi. Right proximal ureteral stone visualized adjacent to the ureteral stent. Dictated by: Bradly Crawley M.D. on 06/20/2022 at 8:21 Approved by: Bradly Crawley M.D. on 06/20/2022 at 8:26
--- NOTE | 2022-06-20 | DI.RAD.S_ITS ---
PROCEDURE: XR CHEST 1V INDICATIONS: aspiration TECHNIQUE: One view of the chest was acquired. COMPARISON: None. FINDINGS: Surgical changes and devices: None. Lungs and pleura: Patchy bilateral lower lung zone airspace opacities more pronounced on the right. No pneumothorax or pleural effusion. Mediastinum: Mediastinal contours appear normal. Heart size is normal. Bones and chest wall: No suspicious bony lesions. Overlying soft tissues appear unremarkable. IMPRESSION: Patchy bilateral lower lung zone airspace opacities which may represent pneumonia, aspiration, versus atelectasis. Recommend follow up chest radiograph 4-6 weeks after treatment to document resolution of findings and/or return to baseline examination. Dictated by: Bradly Crawley M.D. on 06/20/2022 at 10:53 Approved by: Bradly Crawley M.D. on 06/20/2022 at 10:54
[2022-06-20] MEDS: LACTATED RINGERS 1,000 ML 21 ML IV (08:25)
[2022-06-20] MEDS: VANCOMYCIN 1,000 MG/200 ML PIGGYBACK 200 MG IV (08:25)
[2022-06-20] MEDS: ACETAMINOPHEN IV 1,000 MG/100 ML VIAL 400 MG IV (08:26)
--- NOTE | 2022-06-20 08:33 | PM.PREOP ---
Pre-operative Note COVID-19 Criteria for continued procedure: Expected advancement of disease process, Possibility delay results in more complex future surgery or treatment, Continuing or worsening of significant or severe pain, Delay expected to result in less-positive ultimate med/surg outcome and Non-surgical alternatives not available or appropriate per current SOC Interval Note History & Physical reviewed/Exam performed by Physician: Yes Changes to H&P: No
[2022-06-20] MEDS: GENTAMICIN 160 MG in SODIUM CHLORIDE 0.9% 100 ML 104 MG IV (09:10)
--- NOTE | 2022-06-20 09:10 | SUR.OPER ---
Supine on ESWL table, head on pillow, arms padded and tucked, legs uncrossed.
[2022-06-20] MEDS: LACTATED RINGERS 1,000 ML 42 ML IV (10:15)
--- NOTE | 2022-06-20 10:21 | PM.OP.1 ---
Operative Date/Time/Diagnoses Date of procedure: 06/20/22 Time of procedure: 10:00 Pre-op diagnosis: 1. 9 mm obstructing right UPJ/proximal ureteral calculus. 2. Indwelling right ureteral stent. Post-op diagnosis: same Procedure & Clinicians Procedure: 1. Right extracorporeal shockwave lithotripsy (maximal power level 7.0 x 3000 shocks). Same procedure as scheduled: Yes Indications: 1. 9 mm obstructing right UPJ/proximal ureteral calculus. 2. Retained right ureteral stent. Surgeon: Tiffanie Huffman Click Yes if Unassisted: Yes Anesthesia Type: General Operative Notes Findings: Index calculus unchanged in size and position seen imaging. Retained right ureteral stent remains in position as seen in preoperative imaging. Closure Type: not applicable Specimen(s): none sent Estimated Blood Loss (mL): 0 Blood products transfused: none Procedure in detail: The patient was positioned supine and was administered general anesthesia. The above-described stone was then localized in the X,, and Z plane. Lithotripsy was then commenced and lithotripsy was begun at minimal power level. The power level was then gradually increased to a maximal power level of 7.0. Stone and its fragments were periodically imaged as needed throughout the treatment course. At 3000 shocks there continued to be a portion of the upper part of the index calculus remained intact. Otherwise, there was excellent radiographic evidence of stone comminution. Treatment was not resumed common halted at 3000 shocks. The patient was then awakened, transferred to [facility] and transported to recovery in stable condition. Complications: none Post-operative Condition: stable Disposition: PACU Plan for aftercare: Discharge home.
== END 2022-06-20 11:25 | disposition home or self-care (01) ==
PROVIDERS: PCP Family Medicine; Referring Provider Specialist; Visit Provider Specialist
PROC: (CPT 50590; principal; 2022-06-20 09:15)
DX: N20.1 Calculus of ureter (principal); Z96.0 Presence of urogenital implants
CPT/HCPCS: 50590; 71045; 74018; J0131; J1100; J1885; J2250; J2405; J2704; J3010

== ENCOUNTER → 2022-07-01 08:22 | Outpatient (CLI) | payer OTHER, SELFPAY ==
[2022-06-13 17:14] VITALS: BMI 28.3
--- NOTE | 2022-07-01 08:23 | DI.RAD.S_ITS ---
PROCEDURE: XR KUB INDICATIONS: Retained ureteral stent TECHNIQUE: One view of the abdomen acquired. COMPARISON: [facility], CR, XR KUB, 06/20/2022, 8:01. FINDINGS: Surgical changes and devices: Right-sided ureteral stent is again seen. Bowel: Bowel gas pattern is normal. Soft tissues: Multiple bilateral renal calcifications are again noted measures up to 7 mm in size in left kidney. Previously noted 1.2 cm stone in the region of right UPJ/proximal ureter is no longer seen.. Visualized solid organ contours appear normal in size. Bones: No suspicious bony lesions. IMPRESSION: Right-sided ureteral stent in place. Multiple bilateral renal calculi. Previously noted 1.2 x 0.7 cm oval calcification in proximal right ureter is no longer seen. Dictated by: Donnie García M.D. on 07/01/2022 at 10:44 Approved by: Donnie García M.D. on 07/01/2022 at 10:47
== END ==
PROVIDERS: PCP Family Medicine; Referring Provider Specialist; Visit Provider Specialist
DX: N20.1 Calculus of ureter (principal); Z87.442 Personal history of urinary calculi; Z96.0 Presence of urogenital implants; N20.0 Calculus of kidney
CPT/HCPCS: 74018

== ENCOUNTER → 2022-07-01 08:39 | Outpatient (CLI) | payer OTHER, SELFPAY ==
[2022-06-13 17:14] VITALS: BMI 28.3
== END ==
PROVIDERS: PCP Family Medicine; Visit Provider Specialist
DX: N39.0 Urinary tract infection, site not specified (principal); Z96.0 Presence of urogenital implants
CPT/HCPCS: 87086

== ENCOUNTER 2022-07-01 21:47 | Emergency (ER) | payer OTHER, SELFPAY ==
[2022-06-13 17:14] VITALS: BMI 28.3
[2022-07-01 21:57] VITALS: BP 142/80; PULSE 80; RESP 20; TEMP 36.7; O2SAT 97; BMI 28.3
--- NOTE | 2022-07-01 22:23 | ED_ITS ---
HPI - General Adult General Chief complaint: Abdominal Pain Stated complaint: pain r/t stent removal Time Seen by Provider: 07/01/22 22:17 Source: patient Mode of arrival: Wheelchair Limitations: no limitations History of Present Illness HPI narrative: Patient is a 57-year-old female who earlier today had a right-sided ureteral stent removed. This was a planned removal. States that afterwards she was feeling somewhat better until this evening she would a sudden onset of right- sided flank and abdominal discomfort with nausea and vomiting. She does not have any pain or nausea medication at home. No fevers. Related Data Home Medications Medication Instructions Recorded Confirmed loratadine 10 mg tablet (Claritin) 10 mg PO DAILY 06/13/22 07/01/22 Previous Rx's Medication Instructions Recorded scopolamine base 1 mg over 3 days 1 patch transdermal Q3D PRN nausea 06/14/22 transdermal patch and vomiting #4 ea ondansetron 4 mg disintegrating 4 mg PO Q6H PRN nausea and 06/20/22 tablet vomiting #20 tabs tramadol 100 mg tablet 100 mg PO Q6H PRN pain #30 tabs 06/20/22 ketorolac 10 mg tablet 10 mg PO TID PRN pain 5 days #15 07/02/22 tabs scopolamine base 1 mg over 3 days 1 patch transdermal Q3D PRN nausea 07/02/22 transdermal patch and vomiting #4 ea Allergies Allergy/AdvReac Type Severity Reaction Status Date / Time morphine [MORPHINE] Allergy Unknown Verified 07/01/22 09:31 Penicillins [PENICILLINS] Allergy Unknown Verified 07/01/22 09:31 oxycodone [From Percocet] Allergy Verified 07/01/22 09:31 Review of Systems Review of Systems ROS Unobtainable: All systems reviewed & are unremarkable except as noted in HPI and below Patient History Medical History Bilateral nephrolithiasis History of nephrolithiasis Kidney stones Retained ureteral stent Surgical History History of appendectomy History of breast biopsy History of History of tubal ligation Hx of cystoscopy (06/13/22) Hx of lithotripsy S/P ureteral stent placement Family History Grandmother Cancer Social History marital status: household members: spouse Smoking Status: Never smoker alcohol intake: current Type(s) of exercise: other frequency: daily Smoking Status: Never smoker alcohol intake frequency: holidays/special occasions only Substance Use Type: does not use Exam Initial Vital Signs Initial Vital Signs: Vital Signs Temperature 98.1 F 07/01/22 21:57 Pulse Rate 80 07/01/22 21:57 Respiratory Rate 20 07/01/22 21:57 Blood Pressure 142/80 H 07/01/22 21:57 Pulse Oximetry 97 07/01/22 21:57 Oxygen Delivery Method Room Air 07/01/22 21:57 Const General: cooperative and No ill appearing HENMT Head: normal to inspection Resp Effort & Inspection: normal respiratory effort Auscultation: clear to auscultation bilaterally Cardio Rate: regular rate Rhythm: regular rhythm GI Inspection: normal to inspection Back/Spine/Pelvis Back: CVA tenderness right Neuro General: patient alert, patient awake and moves all extremities Course Orders Ordered: ED Orders 07/01/22 22:24 CT kidney ureter bladder (KUB) Stat 07/01/22 22:33 Complete Blood Count AUTO DIFF Stat Comprehensive Metabolic Panel Stat Lipase Stat 07/02/22 01:55 Ictotest Urine Stat Urinalysis and Microscopic Stat Urine Culture Stat Discontinued Medications Hydromorphone HCl (Hydromorphone 1 Mg Inj) 1 mg IV NOW ONE Stop: 07/01/22 22:24 Last Admin: 07/01/22 22:27 Dose: 1 mg Documented By: JIA Sodium Chloride (Normal Saline 0.9%) 1,000 mls @ 1,000 mls/hr IV BOLUS ONE Stop: 07/02/22 01:35 Last Infusion: 07/02/22 02:00 Dose: 0 mls/hr Documented By: Admin: 07/02/22 01:09 Dose: 1,000 mls/hr Documented By: JIA Ondansetron HCl (Ondansetron 4 Mg/2 Ml Inj) 4 mg IV NOW ONE Stop: 07/01/22 22:35 Last Admin: 07/01/22 22:36 Dose: 4 mg Documented By: JIA Scopolamine (Scopolamine 1 Patch) 1 patch TOP NOW ONE Stop: 07/01/22 23:40 Last Admin: 07/02/22 00:04 Dose: 1 patch Documented By: Vital Signs Vital signs: Vital Signs - 8 hr 07/01/22 21:57 07/02/22 00:39 07/02/22 00:43 Temperature 98.1 F Pulse Rate 80 Respiratory Rate 20 Blood Pressure 142/80 H 117/63 Pulse Oximetry 97 94 Oxygen Delivery Method Room Air 07/02/22 00:43 07/02/22 01:00 07/02/22 01:30 Temperature Pulse Rate 68 72 69 Respiratory Rate Blood Pressure Pulse Oximetry 96 97 98 Oxygen Delivery Method 07/02/22 01:55 07/02/22 01:55 Temperature Pulse Rate Respiratory Rate Blood Pressure 116/68 Pulse Oximetry 96 Oxygen Delivery Method Room Air Medical Decision Making Medical Records Medical records reviewed: Yes I reviewed the patient's medical records. Lab Data Lab results reviewed: Yes I reviewed the patient's lab results. 07/01/22 22:33 07/01/22 22:33 Labs: Lab Results 07/01/22 07/01/22 07/02/22 Range/Units 22:33 22:33 01:55 WBC 16.8 H (4.5-11.0) X10^3/uL RBC 4.39 (4.0-5.2) X10^6/uL Hgb 13.4 (12.0-16.0) g/dL Hct 39.2 (36-46) % MCV 89.2 (80-100) fL MCH 30.5 (26-34) PG MCHC 34.2 (30-36) % RDW 13.5 (11.6-14.8) % Plt Count 356 (150-400) X10^3/uL Neut % (Auto) 82.6 H (50-75) % Lymph % (Auto) 11.4 L (25-40) % Anderson % (Auto) 4.7 (3-14) % Eos % (Auto) 1.1 L (2-4) % Baso % (Auto) 0.2 (0-2) % Neut # (Auto) 04846 H (1048-2496) /uL Lymph # (Auto) 1900 (7578-2719) /uL Anderson # (Auto) 800 (0-900) /uL Eos # (Auto) 200 (0-450) /uL Baso # (Auto) 0 (0-100) /uL Sodium 141 (137-145) mmol/L Potassium 4.1 (3.4-5.1) mmol/L Chloride 104 (98-107) mmol/L Carbon Dioxide 28 (22-32) mmol/L BUN 19 H (7-17) mg/dL Creatinine 0.62 (0.52-1.04) mg/dL Estimated GFR > 60 (>60) mL/min BUN/Creatinine Ratio 30.6 H (6-22) Glucose 116 H (70-100) mg/dL Calcium 9.4 (8.4-10.2) mg/dL Total Bilirubin 0.5 (0.2-1.3) mg/dL AST 27 (14-36) IU/L ALT 163 H (<35) IU/L Alkaline Phosphatase 141 H (38-126) U/L Total Protein 8.2 (6.3-8.2) g/dL Albumin 4.7 (3.5-5.0) g/dL Globulin 3.5 (1.7-4.1) g/dL Albumin/Globulin Ratio 1.3 (1.0-2.8) Lipase 74 (23-300) U/L Urine Color Lovely Urine Appearance Cloudy Urine pH 7.5 (4.5-8.0) Ur Specific [place] 1.015 (1.000-1.035) Urine Protein 3+ H (Negative) Urine Glucose (UA) Trace H (Negative) g/dL Urine Ketones Not Reportable Urine Occult Blood 3+ H (Negative) Urine Nitrate Not Reportable Urine Bilirubin 1+ H (NEGATIVE) Ur Bilirubin Confirm Negative (Negative) Urine Urobilinogen 4.0 H (0.2) E.U./dL Ur Leukocyte Esterase Not Reportable Urine RBC >100/hpf H (0-5/HPF) Urine WBC 1-5/hpf (0-5/HPF) Ur Squamous Epith Cells 0-1 /hpf (0-5/HPF) Calcium Oxalate Crystal Few H Urine Bacteria None seen (None) Micro UA Comment * Imaging Data CT scan - abdomen/pelvis: Radiologist's Impression: PROCEDURE:? CT KIDNEY URETER BLADDER (KUB) ? INDICATIONS:? R sided flank pain after ureteral stent removal today ? TECHNIQUE:? Axial sections were acquired from the lung bases to the pubic symphysis.? Coronal and sagittal reformats were performed.? For radiation dose reduction, the following was used: ?automated exposure control, adjustment of mA and/or kV according to patient size.? ? COMPARISON:? [facility], CT, CT KIDNEY URETER BLADDER (KUB), 06/13/2022, 7:32. ? FINDINGS:? Image quality:? Excellent.? ? Lung bases:? There is minimal atelectasis.? ? Heart:? Heart is normal in size.? There is a minimal pericardial effusion.? There is a small hiatal hernia. Chest wall:? There are partially visualized bilateral breast implants.? There is adjacent lobulated fluid or soft tissue lateral to the left implant which may reflect a partial rupture. URINARY: Right Kidney and Ureter: ? There is mild right hydroureteronephrosis with perinephric and periureteral fat stranding.? Mild urothelial thickening is also demonstrated.? No obstructing stone visualized.? There are approximately 15 nonobstructing right renal stones, with the largest measuring up to 0.5 cm and demonstrating attenuation values of approximately 700-800 Hounsfield units. ? Left Kidney and Ureter: ? Multiple, at least 12, nonobstructing left renal stones are demonstrated with the largest in the inferior pole measuring up to 0.7 cm and demonstrating attenuation values of approximately 900-1000 Hounsfield units.? No hydronephrosis.? No hydroureter. ? Bladder:? Normal wall thickness.? There is a recently passed dependent stone laterally in the right aspect of the bladder measuring up to 0.5 cm.? There are few small foci of gas within the bladder. ? ABDOMEN: Liver:? Noncontrast evaluation of the liver demonstrates no discrete? mass. Gallbladder:? Within normal limits without calcified gallstones.? ? Biliary ducts:? No biliary ductal dilatation.? ? Pancreas:? Unremarkable.? ? Spleen:? Normal in size.? ? Adrenal Glands:? No adrenal nodules.? ? ? Stomach and Bowel:? Stomach, small bowel loops, and colon are normal in caliber and wall thickness.? No pericecal inflammatory changes to suggest appendicitis.? There is colonic diverticulosis without acute diverticulitis.? Peritoneum:? No abnormal intraperitoneal fluid.? No free air.? ? Ventral Wall: ? No hernia.? Abdominal Nodes:? No retroperitoneal or mesenteric adenopathy by size criteria.? Vessels:? Aorta and inferior vena cava are normal in size.? ? PELVIS: Pelvic Organs:? Unremarkable.? ? Pelvic Nodes: No enlarged lymph nodes.? Miscellaneous: No inguinal hernias identified. ? ? ? Bones:? Visualized osseous structures demonstrate no suspicious focal lesions. IMPRESSION:? ? 1. Persistent mild right hydroureteronephrosis with perinephric and periureteral fat stranding as well as mild urothelial thickening.? Findings likely represent sequelae of recently passed obstructing stone, but a urinary tract infection not excluded. ? 2. Numerous bilateral nonobstructing renal stones demonstrated. ? 3. Recently passed 0.5 cm stone demonstrated within the bladder. MDM Narrative Medical decision making narrative: Patient was very uncomfortable upon arrival but after medication symptoms seemed to improve. The CT scan today does show a 5 mm stone in the bladder which I suspect is what was the cause of her symptoms today. She does have perinephric stranding on the right however this could be a because she just passed the stone but also because of the stent that was removed today. Was also concerned about a urinary tract infection although I feel this is less likely based on how she presents in the sudden onset of her symptoms. Urine culture was pending at the time your discharge him we will wait for that to resolve before starting her on any antibiotics. She stated that she felt well enough to go home. Will discharge home with medications and instructions to continue to follow all of the urology recommendations. She was given return precautions. Discharge Plan Departure Patient Disposition: Home Clinical Impression: Kidney stones Instructions: DI for Kidney Stones Activity Restrictions/Additional Instructions: I recommend that you follow all of the instructions given to by the urologist and keep all of your scheduled medical appointments. Return to the emergency department for new or worsening symptoms. Prescriptions: New ketorolac 10 mg tablet 10 mg PO TID PRN (Reason: pain) 5 Days Qty: 15 0RF scopolamine base 1 mg over 3 days patch 3 day 1 patch transdermal Q3D PRN (Reason: nausea and vomiting) Qty: 4 0RF No Action loratadine [Claritin] 10 mg Tablet 10 mg PO DAILY scopolamine base 1 mg over 3 days patch 3 day 1 patch transdermal Q3D MDD 1 patch per 72 hours PRN (Reason: nausea and vomiting) Qty: 4 0RF tramadol 100 mg tablet 100 mg PO Q6H PRN (Reason: pain) Qty: 30 0RF Rx Instructions: Take 1-2 acetaminophen every 6 hours with tramadol as needed for pain. ondansetron 4 mg tablet,disintegrating 4 mg PO Q6H PRN (Reason: nausea and vomiting) Qty: 20 0RF Referrals: Loni Ryan DO [Primary Care Provider] - Stand Alone Forms: Patient Portal/API
--- NOTE | 2022-07-01 22:24 | DI.CT.S_ITS ---
PROCEDURE: CT KIDNEY URETER BLADDER (KUB) INDICATIONS: R sided flank pain after ureteral stent removal today TECHNIQUE: Axial sections were acquired from the lung bases to the pubic symphysis. Coronal and sagittal reformats were performed. For radiation dose reduction, the following was used: automated exposure control, adjustment of mA and/or kV according to patient size. COMPARISON: [facility], CT, CT KIDNEY URETER BLADDER (KUB), 06/13/2022, 7:32. FINDINGS: Image quality: Excellent. Lung bases: There is minimal atelectasis. Heart: Heart is normal in size. There is a minimal pericardial effusion. There is a small hiatal hernia. Chest wall: There are partially visualized bilateral breast implants. There is adjacent lobulated fluid or soft tissue lateral to the left implant which may reflect a partial rupture. URINARY: Right Kidney and Ureter: There is mild right hydroureteronephrosis with perinephric and periureteral fat stranding. Mild urothelial thickening is also demonstrated. No obstructing stone visualized. There are approximately 15 nonobstructing right renal stones, with the largest measuring up to 0.5 cm and demonstrating attenuation values of approximately 700-800 Hounsfield units. Left Kidney and Ureter: Multiple, at least 12, nonobstructing left renal stones are demonstrated with the largest in the inferior pole measuring up to 0.7 cm and demonstrating attenuation values of approximately 900-1000 Hounsfield units. No hydronephrosis. No hydroureter. Bladder: Normal wall thickness. There is a recently passed dependent stone laterally in the right aspect of the bladder measuring up to 0.5 cm. There are few small foci of gas within the bladder. ABDOMEN: Liver: Noncontrast evaluation of the liver demonstrates no discrete mass. Gallbladder: Within normal limits without calcified gallstones. Biliary ducts: No biliary ductal dilatation. Pancreas: Unremarkable. Spleen: Normal in size. Adrenal Glands: No adrenal nodules. Stomach and Bowel: Stomach, small bowel loops, and colon are normal in caliber and wall thickness. No pericecal inflammatory changes to suggest appendicitis. There is colonic diverticulosis without acute diverticulitis. Peritoneum: No abnormal intraperitoneal fluid. No free air. Ventral Wall: No hernia. Abdominal Nodes: No retroperitoneal or mesenteric adenopathy by size criteria. Vessels: Aorta and inferior vena cava are normal in size. PELVIS: Pelvic Organs: Unremarkable. Pelvic Nodes: No enlarged lymph nodes. Miscellaneous: No inguinal hernias identified. Bones: Visualized osseous structures demonstrate no suspicious focal lesions. IMPRESSION: 1. Persistent mild right hydroureteronephrosis with perinephric and periureteral fat stranding as well as mild urothelial thickening. Findings likely represent sequelae of recently passed obstructing stone, but a urinary tract infection not excluded. 2. Numerous bilateral nonobstructing renal stones demonstrated. 3. Recently passed 0.5 cm stone demonstrated within the bladder. Dictated by: Car Carson M.D. on 07/01/2022 at 23:29 Approved by: Car Carson M.D. on 07/01/2022 at 23:37
[2022-07-01] MEDS: HYDROMORPHONE 1 MG INJ IV (22:27)
[2022-07-01] MEDS: ONDANSETRON 4 MG/2 ML INJ IV (22:36)
[2022-07-01 22:58] LABS: Add Manual Diff / Slide Review NO; Basophils Absolute Auto 0 /uL (0-100); Basophils Percent Auto 0.2 % (0-2); Eosinophils Absolute Auto 200 /uL (0-450); Eosinophils Percent Auto 1.1 % (2-4); Hematocrit 39.2 % (36-46); Hemoglobin 13.4 g/dL (12.0-16.0); Lymphocytes Absolute Auto 1900 /uL (1100-4500); Lymphocytes Percent Auto 11.4 % (25-40); Mean Corpuscular HGB Conc 34.2 % (30-36); Mean Corpuscular Hemoglobin 30.5 PG (26-34); Mean Corpuscular Volume 89.2 fL (80-100); Monocytes Absolute Auto 800 /uL (0-900); Monocytes Percent Auto 4.7 % (3-14); Neutrophils Absolute Auto 13900 /uL (1500-7000); Neutrophils Percent Auto 82.6 % (50-75); Platelet Count 356 X10^3/uL (150-400); Red Blood Cell Count 4.39 X10^6/uL (4.0-5.2); Red Cell Distribution Width 13.5 % (11.6-14.8); White Blood Cell Count 16.8 X10^3/uL (4.5-11.0)
[2022-07-01 23:01] LABS: Alanine Aminotransferase 163 IU/L (<35); Albumin 4.7 g/dL (3.5-5.0); Albumin Globulin Ratio 1.3 (1.0-2.8); Alkaline Phosphatase 141 U/L (38-126); Aspartate Aminotransferase 27 IU/L (14-36); BUN Creatinine Ratio 30.6 (6-22); Bilirubin Total 0.5 mg/dL (0.2-1.3); Blood Urea Nitrogen 19 mg/dL (7-17); Calcium 9.4 mg/dL (8.4-10.2); Carbon Dioxide 28 mmol/L (22-32); Chloride 104 mmol/L (98-107); Estimated Glomerular Filt Rate > 60 mL/min (>60); Globulin 3.5 g/dL (1.7-4.1); Glucose 116 mg/dL (70-100); HEMOLYSIS < 15 (0-50); Lipase 74 U/L (23-300); Potassium 4.1 mmol/L (3.4-5.1); Sodium 141 mmol/L (137-145); Total Protein 8.2 g/dL (6.3-8.2)
[2022-07-02] VITALS (8 sets, daily range): BP systolic 104–118; BP diastolic 59–72; PULSE 68–72; O2SAT 94–99
[2022-07-02] MEDS: SCOPOLAMINE 1 PATCH TOP (00:04)
[2022-07-02] MEDS: SODIUM CHLORIDE 0.9% 1,000 ML 1000 ML IV (01:09)
[2022-07-02 02:07] LABS: Appearance Urine UA CLOUDY; Bilirubin Urine UA 1+ (NEGATIVE); Glucose Urine UA TRACE g/dL (Negative); Occult Blood Urine UA 3+ (Negative); Protein Urine UA 3+ (Negative); Specific Gravity Urine UA 1.015 (1.000-1.035)
[2022-07-02 02:38] LABS: Color Urine UA Amber; pH Urine UA 7.5 (4.5-8.0)
[2022-07-02 02:39] LABS: Ictotest Urine Negative (Negative)
[2022-07-02 02:40] LABS: Bacteria Urine None Seen; Calcium Oxalate Crystals Urine Few; RBC Urine >100/HPF (0-5/HPF); Squamous Epithelial Cell Urine 0-1 /HPF (0-5/HPF); WBC Urine 1-5/HPF (0-5/HPF)
== END 2022-07-02 03:26 | disposition home or self-care (01) ==
PROVIDERS: Emergency Provider Emergency Medicine; PCP Family Medicine
DX: N20.0 Calculus of kidney (principal); N39.0 Urinary tract infection, site not specified; Z96.0 Presence of urogenital implants; N20.1 Calculus of ureter; Z87.442 Personal history of urinary calculi
CPT/HCPCS: 36415; 52310; 74018; 74176; 80053; 81001; 81002; 83690; 85025; 87086; 96374; 96375; 99215; 99284; J1170; J2405

== ENCOUNTER → 2022-07-03 15:24 | Outpatient (CLI) | payer OTHER, SELFPAY ==
[2022-06-13 17:14] VITALS: BMI 28.3
[2022-07-10 15:40] LABS: Ca oxalate dihydrate 100 % (.); Size 3x3 mm (.)
== END ==
PROVIDERS: PCP Family Medicine; Visit Provider Specialist
DX: N20.0 Calculus of kidney (principal); N20.1 Calculus of ureter; Z96.0 Presence of urogenital implants
CPT/HCPCS: 82365

== ENCOUNTER 2022-08-22 06:26 | Day surgery (SDC) | payer OTHER, SELFPAY ==
[2022-06-13 17:14] VITALS: BMI 28.3
[2022-08-15 14:43] VITALS: BMI 28.3
[2022-08-22] VITALS (10 sets, daily range): BP systolic 109–134; BP diastolic 78–87; PULSE 60–66; RESP 15–22; TEMP 36.2–36.8; O2SAT 96–100; BMI 28.3
--- NOTE | 2022-08-22 | DI.RAD.S_ITS ---
PROCEDURE: XR KUB INDICATIONS: Left nephrolithiasis TECHNIQUE: One view of the abdomen acquired. COMPARISON: [facility], CT, CT KIDNEY URETER BLADDER (KUB), 07/01/2022, 22:29. [facility], CR, XR KUB, 07/01/2022, 8:19. [facility], CR, XR KUB, 06/20/2022, 8:01. FINDINGS: Surgical changes and devices: None. Bowel: Bowel gas pattern is normal. Soft tissues: Small nonobstructing kidney stones bilaterally. At least 3 on the right and at least 2 on the left. The largest on the right measures 0.6 cm and on the left 0.6 cm. No bladder stone is identified. Limited visualization due to fecal residue. Phleboliths in the left pelvis are unchanged. No suspicious abdominal calcifications. Visualized solid organ contours appear normal in size. Lung bases are clear. Bones: No suspicious bony lesions. IMPRESSION: Several small nonobstructing kidney stones are seen bilaterally. Dictated by: Patrick Stanford M.D. on 08/22/2022 at 7:42 Approved by: Patrick Stanford M.D. on 08/22/2022 at 7:45
[2022-08-22] MEDS: LACTATED RINGERS 1,000 ML 42 ML IV (07:28)
--- NOTE | 2022-08-22 07:30 | PM.PREOP ---
Pre-operative Note COVID-19 Criteria for continued procedure: Expected advancement of disease process, Continuing or worsening of significant or severe pain, Deterioration of the patient's condition or overall health, Delay expected to result in less-positive ultimate med/surg outcome and Non-surgical alternatives not available or appropriate per current SOC Interval Note History & Physical reviewed/Exam performed by Physician: Yes Changes to H&P: No
--- NOTE | 2022-08-22 07:50 | PM.HP.1 ---
History of Present Illness History of Present Illness Date Patient Seen: 08/22/22 Time Patient Seen: 07:00 Chief complaint: Left Extracorporeal Shock Wave Lithotripsy Narrative: The patient is a 57-year-old female with a history of recurrent calcium nephrolithiasis presenting today for planned left extracorporeal shockwave lithotripsy for history of intermittent left renal colic and multiple left renal calculi. She is status post right ESWL on 06/25/2022. She is had a smooth an excellent subsequent recovery. Patient is motivated to understand underlying risk factors for stone formation in future metabolic stone risk evaluation is planned. [facility] Medical History (Updated 08/22/22 @ 07:54 by Tiffanie Huffman MD) Bilateral nephrolithiasis History of nephrolithiasis Kidney stones Renal colic on left side Retained ureteral stent Surgical History History of appendectomy History of breast biopsy History of History of tubal ligation History of urologic surgery (06/20/22) Hx of cystoscopy (06/13/22) Hx of cystoscopy (06/25/22) Hx of lithotripsy S/P ureteral stent placement Family History Grandmother Cancer Social History marital status: household members: spouse Smoking Status: Never smoker alcohol intake: current Type(s) of exercise: other frequency: daily Meds Home Medications and Allergies Home Medications Medication Instructions Recorded Confirmed Type loratadine 10 mg tablet (Claritin) 10 mg PO DAILY 06/13/22 08/22/22 History tramadol 100 mg tablet 100 mg PO Q6H PRN pain #30 tabs 06/20/22 08/22/22 Rx Allergies Allergy/AdvReac Type Severity Reaction Status Date / Time morphine [MORPHINE] Allergy Unknown Vomiting Verified 08/22/22 06:53 Penicillins [PENICILLINS] Allergy Unknown Rash Verified 08/22/22 06:53 oxycodone [From Percocet] Allergy Vomiting Verified 08/22/22 06:53 Review of Systems Review of Systems ROS: Yes All systems reviewed with the patient and are negative except as otherwise documented Exam Vital Signs (past 8 hours): - 07/14/23 06:59 Temperature 97.2 F L Pulse Rate 60 Respiratory Rate 16 Blood Pressure 125/87 Pulse Oximetry 100 Oxygen Delivery Method Room Air Oxygen Delivery Method Room Air Narrative Exam Narrative: She is a well-developed and nourished middle-aged woman looking younger than stated age and in no distress. Head/neck-sclera clear pupils are equal and round bilaterally. Chest-equal and unlabored expansion bilaterally. Heart-normal sinus rhythm. Assessment & Plan Assessment and plan (1) Bilateral nephrolithiasis: Status: Acute (2) Renal colic on left side: Status: Acute Plan 1. Proceed with planned and scheduled left extracorporeal shockwave lithotripsy. Detailed informed consent previously obtained at last clinic encounter.
--- NOTE | 2022-08-22 08:03 | SUR.OPER ---
Supine on padded OR bed, head on pillow, arms secured on padded arm boards at <90 degrees abduction, legs uncrossed, safety belt at thigh, tape over blanket over lower legs.
--- NOTE | 2022-08-22 08:26 | P.OP_ITS ---
Operative Date/Time/Diagnoses Date of procedure: 08/22/22 Time of procedure: 08:26 Pre-op diagnosis: 1. Left nephrolithiasis. 2. History of left renal colic. Procedure & Clinicians Procedure: Left extracorporeal shockwave lithotripsy (2000 at maximum 7.0) Same procedure as scheduled: Yes Indications: 1. Left nephrolithiasis. 2. History of left renal. Surgeon: Tiffanie Huffman Click Yes if Unassisted: Yes Anesthesia Type: General Operative Notes Findings: Index calculi x2 unchanged in size and position verses preoperative imaging. Closure Type: not applicable Specimen(s): none sent Estimated Blood Loss (mL): 0 Procedure in detail: The patient was positioned supine and administered general anesthesia. The above-described stone which related Narinder to 1 another were then localized in the X, Y, and Z plane. Lithotripsy was the commenced at minimal power level for 200 shocks. A 2 minute pause was then conducted. Lithotripsy was then resumed and the power level gradually increased to a maximum of 7.0. The stone and fragments were read localized as needed through the course of the treatment. At 2000 shock there was excellent radiographic evidence of stone comminution and no significant residual fragments radiographically. The patient was then awakened, transferred to [facility] and then transported recovery in stable condition. Complications: none Post-operative Condition: stable Disposition: PACU Plan for aftercare: Discharge home.
[2022-08-22] MEDS: KETOROLAC 30 MG/ML VIAL IV (08:57)
[2022-08-22] MEDS: FUROSEMIDE 40 MG/4 ML VIAL 20 MG IV (09:00)
== END 2022-08-22 10:30 | disposition home or self-care (01) ==
PROVIDERS: PCP Family Medicine; Referring Provider Specialist; Visit Provider Specialist
PROC: (CPT 50590; principal; 2022-08-22 07:45)
DX: N20.0 Calculus of kidney (principal)
CPT/HCPCS: 50590; 74018; J1100; J1885; J1940; J2250; J2405; J2704; J3010; J3490

== ENCOUNTER → 2022-10-01 12:11 | Outpatient (CLI) | payer OTHER, SELFPAY ==
[2022-06-13 17:14] VITALS: BMI 28.3
--- NOTE | 2022-10-01 12:12 | DI.RAD.S_ITS ---
PROCEDURE: XR KUB INDICATIONS: kidney stones TECHNIQUE: One view of the abdomen acquired. COMPARISON: [facility], CR, XR KUB, 08/22/2022, 6:30. FINDINGS: Surgical changes and devices: None. Bowel: Bowel gas pattern is normal. Mildly increased quantity of solid stool. Soft tissues: Decreased visualization of the left midpole or lower pole calculi due to overlying stool. Several right renal calculi, similar size compared to the prior exam. Bones: No suspicious bony lesions. IMPRESSION: Decreased visualization of left intrarenal calculi. Dictated by: Moni Lopez M.D. on 10/01/2022 at 15:23 Approved by: Moni Lopez M.D. on 10/01/2022 at 15:26
== END ==
PROVIDERS: PCP Family Medicine; Referring Provider Specialist; Visit Provider Specialist
DX: N20.2 Calculus of kidney with calculus of ureter (principal); N23 Unspecified renal colic; Z96.0 Presence of urogenital implants
CPT/HCPCS: 74018; 81002; 99215

== ENCOUNTER → 2023-01-21 11:14 | Outpatient (CLI) | payer OTHER, SELFPAY ==
[2022-06-13 17:14] VITALS: BMI 28.3
--- NOTE | 2023-01-21 11:20 | DI.RAD.S_ITS ---
PROCEDURE: XR KUB INDICATIONS: kidney stones TECHNIQUE: One view of the abdomen acquired. COMPARISON: [facility], CR, XR KUB, 08/22/2022, 6:30. [facility], CR, XR KUB, 10/01/2022, 12:16. FINDINGS: Surgical changes and devices: None. Bowel: Bowel gas pattern is normal. Prominent colonic stool is present. Soft tissues: No suspicious abdominal calcifications. Punctate calcification is noted overlying the inferior renal pole. Remainder of the kidney is obscured by overlying stool. Poorly visualized areas of hyperdensity are noted overlying the right kidney, although also obscured by overlying stool. Visualized solid organ contours appear normal in size. Bones: No suspicious bony lesions. IMPRESSION: Calcifications overlying both kidneys appearing relatively similar. However, significant overlying stool is present limiting evaluation. Dictated by: Rosario Hendricks M.D. on 01/21/2023 at 19:32 Approved by: Rosario Hendricks M.D. on 01/21/2023 at 19:33
== END ==
PROVIDERS: PCP Family Medicine; Referring Provider Specialist; Visit Provider Specialist
DX: N20.2 Calculus of kidney with calculus of ureter (principal); N23 Unspecified renal colic; Z87.442 Personal history of urinary calculi
CPT/HCPCS: 74018; 81002; 99215

== ENCOUNTER 2023-03-01 04:19 | Emergency (ER) | payer OTHER, SELFPAY ==
[2022-06-13 17:14] VITALS: BMI 28.3
[2023-03-01] VITALS (15 sets, daily range): BP systolic 105–148; BP diastolic 65–93; PULSE 66–103; RESP 16–20; TEMP 37–37.6; O2SAT 93–99; BMI 29.2
--- NOTE | 2023-03-01 04:21 | ED.FEMALEGU ---
HPI - Female Genitourinary <Loli Negron DO - Last Filed: 03/01/23 20:04> General Chief complaint: Back Pain/Injury Stated complaint: L kidney Time Seen by Provider: 03/01/23 04:20 Source: patient, RN notes reviewed and old records reviewed Mode of arrival: Ambulatory Limitations: no limitations History of Present Illness HPI Narrative: 7-year-old female with history of kidney stones with ureteral stents placed and removed bilaterally in the past. Patient presents with complaint of left flank pain that started as a what she thought a muscle spasm and has been, increasingly painful. Patient denies fevers. Does have nausea denies any active vomiting. She is normal bowel movements. States no dysuria, states no frequency or sense of urgency but only a small amount of urine. She denies any vaginal bleeding or discharge. States this does feel very similar to when she has had kidney stones in the past. Patient states no daily medications. She has had some recent nasal congestion and has been taking DayQuil and NyQuil. Denies surgeries other than her ureteral stents. States allergic to penicillin develops rash, morphine causes vomiting. Follows with Dr. Huffman for Urology. No tobacco, rare alcohol, no recreational drugs. Related Data Home Medications Medication Instructions Recorded Confirmed No Known Home Medications 10/01/22 01/21/23 Allergies Allergy/AdvReac Type Severity Reaction Status Date / Time morphine [MORPHINE] Allergy Unknown Vomiting Verified 10/01/22 13:46 Penicillins [PENICILLINS] Allergy Unknown Rash Verified 10/01/22 13:46 diphenhydramine Allergy Verified 03/01/23 04:31 [From Benadryl] erythromycin base Allergy Verified 03/01/23 04:31 oxycodone [From Percocet] Allergy Vomiting Verified 10/01/22 13:46 Review of Systems <Loli Negron DO - Last Filed: 03/01/23 20:04> Review of Systems ROS Unobtainable: All systems reviewed & are unremarkable except as noted in HPI and below Patient History <Loli Negron DO - Last Filed: 03/01/23 20:04> Medical History Renal colic on left side History of nephrolithiasis Bilateral nephrolithiasis Retained ureteral stent Kidney stones Surgical History Hx of cystoscopy (06/25/22) History of urologic surgery (06/20/22) History of tubal ligation History of History of breast biopsy History of appendectomy Hx of lithotripsy Hx of cystoscopy (06/13/22) S/P ureteral stent placement Family History Grandmother Cancer alcohol intake frequency: holidays/special occasions only Substance Use Type: does not use Exam <Loli Negron DO - Last Filed: 03/01/23 20:04> Narrative Exam Narrative: GENERAL: Alert and oriented x three, female in moderate distress. HEENT: Head normocephalic, atraumatic, EOMI, pupils reactive, face symmetric, moist mucous membranes NECK: Supple, full range of motion CARDIOVASCULAR: Regular rate and rhythm without murmurs, rubs or gallops. RESPIRATORY: Breath sounds equal bilaterally, no wheezes rales or rhonchi. ABDOMEN: Soft, nontender. Nondistended. Normoactive bowel sounds all 4 quadrants. No guarding or rebound, rigidity, no mass : No CVA tenderness bilaterally. EXTREMITIES: Normal range of motion, no clubbing or edema. Neurovascularly intact NEUROLOGICAL: Cranial nerves II through XII grossly intact. Moving all extremities SKIN: Warm, dry, no petechiae, no rashes or lesions. Initial Vital Signs Initial Vital Signs: Vital Signs Temperature 99.7 F H 03/01/23 04:27 Pulse Rate 103 H 03/01/23 04:27 Respiratory Rate 16 03/01/23 04:27 Blood Pressure 140/87 03/01/23 04:27 Pulse Oximetry 99 03/01/23 04:27 Oxygen Delivery Method Room Air 03/01/23 04:27 <Loli Quinonez MD - Last Filed: 03/01/23 09:40> Initial Vital Signs Initial Vital Signs: Vital Signs Temperature 99.7 F H 03/01/23 04:27 Pulse Rate 103 H 03/01/23 04:27 Respiratory Rate 16 03/01/23 04:27 Blood Pressure 140/87 03/01/23 04:27 Pulse Oximetry 99 03/01/23 04:27 Oxygen Delivery Method Room Air 03/01/23 04:27 Course <Loli Negron, DO - Last Filed: 03/01/23 20:04> Orders Ordered: Discontinued Medications Dexamethasone (Dexamethasone 10 Mg/Ml Vial) 10 mg IV NOW ONE Stop: 03/01/23 08:37 Last Admin: 03/01/23 08:44 Dose: 10 mg Documented By: ANGEL Hydromorphone HCl (Hydromorphone 1 Mg Inj) 1 mg IV NOW ONE Stop: 03/01/23 05:02 Last Admin: 03/01/23 05:30 Dose: 1 mg Documented By: GWYN Sodium Chloride (Normal Saline 0.9%) 1,000 mls @ 1,000 mls/hr IV BOLUS ONE Stop: 03/01/23 05:26 Last Infusion: 03/01/23 05:35 Dose: Infused Documented By: Admin: 03/01/23 04:35 Dose: 1,000 mls/hr Documented By: GWYN Ketorolac Tromethamine (Ketorolac 30 Mg/Ml Vial) 15 mg IV NOW ONE Stop: 03/01/23 04:28 Last Admin: 03/01/23 04:35 Dose: 15 mg Documented By: GWYN Ketorolac Tromethamine (Ketorolac 30 Mg/Ml Vial) 15 mg IV NOW ONE Stop: 03/01/23 08:37 Last Admin: 03/01/23 08:43 Dose: 15 mg Documented By: ANGEL Lidocaine (Lidocaine 5% Patch) 1 each TOP NOW ONE Stop: 03/01/23 08:38 Last Admin: 03/01/23 08:44 Dose: 1 each Documented By: ANGEL Methocarbamol (Methocarbamol 500 Mg Tablet) 750 mg PO NOW ONE Stop: 03/01/23 08:37 Last Admin: 03/01/23 08:42 Dose: 750 mg Documented By: ANGEL Ondansetron HCl (Ondansetron 4 Mg/2 Ml Inj) 4 mg IV NOW ONE Stop: 03/01/23 04:30 Last Admin: 03/01/23 04:35 Dose: 4 mg Documented By: GWYN Vital Signs Vital signs: Vital Signs - 8 hr 03/01/23 04:27 03/01/23 04:54 03/01/23 04:55 Temperature 99.7 F H Pulse Rate 103 H 88 80 Respiratory Rate 16 Blood Pressure 140/87 Pulse Oximetry 99 96 94 Oxygen Delivery Method Room Air Room Air Room Air Oxygen Flow Rate 03/01/23 04:55 03/01/23 05:00 03/01/23 05:00 Temperature Pulse Rate 87 Respiratory Rate Blood Pressure 143/93 H 145/93 H Pulse Oximetry 97 Oxygen Delivery Method Room Air Oxygen Flow Rate 03/01/23 05:09 03/01/23 05:09 03/01/23 05:30 Temperature Pulse Rate 79 73 Respiratory Rate Blood Pressure 133/85 Pulse Oximetry 94 94 Oxygen Delivery Method Room Air Room Air Oxygen Flow Rate 03/01/23 05:30 03/01/23 06:00 03/01/23 06:00 Temperature Pulse Rate 70 Respiratory Rate Blood Pressure 148/85 H 125/83 Pulse Oximetry 98 Oxygen Delivery Method Nasal Cannula Oxygen Flow Rate 2 03/01/23 07:05 03/01/23 07:10 03/01/23 07:10 Temperature Pulse Rate 72 71 Respiratory Rate Blood Pressure 110/67 Pulse Oximetry 94 95 Oxygen Delivery Method Room Air Room Air Oxygen Flow Rate 03/01/23 07:30 03/01/23 07:30 03/01/23 08:00 Temperature Pulse Rate 68 Respiratory Rate Blood Pressure 105/66 112/65 Pulse Oximetry 93 Oxygen Delivery Method Oxygen Flow Rate 03/01/23 08:00 03/01/23 08:30 03/01/23 08:30 Temperature Pulse Rate 70 66 Respiratory Rate Blood Pressure 121/67 Pulse Oximetry 93 95 Oxygen Delivery Method Oxygen Flow Rate <Loli Quinonez MD - Last Filed: 03/01/23 09:40> Orders Ordered: Discontinued Medications Dexamethasone (Dexamethasone 10 Mg/Ml Vial) 10 mg IV NOW ONE Stop: 03/01/23 08:37 Last Admin: 03/01/23 08:44 Dose: 10 mg Documented By: ANGEL Hydromorphone HCl (Hydromorphone 1 Mg Inj) 1 mg IV NOW ONE Stop: 03/01/23 05:02 Last Admin: 03/01/23 05:30 Dose: 1 mg Documented By: GWYN Sodium Chloride (Normal Saline 0.9%) 1,000 mls @ 1,000 mls/hr IV BOLUS ONE Stop: 03/01/23 05:26 Last Infusion: 03/01/23 05:35 Dose: Infused Documented By: Admin: 03/01/23 04:35 Dose: 1,000 mls/hr Documented By: GWYN Ketorolac Tromethamine (Ketorolac 30 Mg/Ml Vial) 15 mg IV NOW ONE Stop: 03/01/23 04:28 Last Admin: 03/01/23 04:35 Dose: 15 mg Documented By: GWYN Ketorolac Tromethamine (Ketorolac 30 Mg/Ml Vial) 15 mg IV NOW ONE Stop: 03/01/23 08:37 Last Admin: 03/01/23 08:43 Dose: 15 mg Documented By: ANGEL Lidocaine (Lidocaine 5% Patch) 1 each TOP NOW ONE Stop: 03/01/23 08:38 Last Admin: 03/01/23 08:44 Dose: 1 each Documented By: ANGEL Methocarbamol (Methocarbamol 500 Mg Tablet) 750 mg PO NOW ONE Stop: 03/01/23 08:37 Last Admin: 03/01/23 08:42 Dose: 750 mg Documented By: ANGEL Ondansetron HCl (Ondansetron 4 Mg/2 Ml Inj) 4 mg IV NOW ONE Stop: 03/01/23 04:30 Last Admin: 03/01/23 04:35 Dose: 4 mg Documented By: GWYN Vital Signs Vital signs: Vital Signs - 8 hr 03/01/23 04:27 03/01/23 04:54 03/01/23 04:55 Temperature 99.7 F H Pulse Rate 103 H 88 80 Respiratory Rate 16 Blood Pressure 140/87 Pulse Oximetry 99 96 94 Oxygen Delivery Method Room Air Room Air Room Air Oxygen Flow Rate 03/01/23 04:55 03/01/23 05:00 03/01/23 05:00 Temperature Pulse Rate 87 Respiratory Rate Blood Pressure 143/93 H 145/93 H Pulse Oximetry 97 Oxygen Delivery Method Room Air Oxygen Flow Rate 03/01/23 05:09 03/01/23 05:09 03/01/23 05:30 Temperature Pulse Rate 79 73 Respiratory Rate Blood Pressure 133/85 Pulse Oximetry 94 94 Oxygen Delivery Method Room Air Room Air Oxygen Flow Rate 03/01/23 05:30 03/01/23 06:00 03/01/23 06:00 Temperature Pulse Rate 70 Respiratory Rate Blood Pressure 148/85 H 125/83 Pulse Oximetry 98 Oxygen Delivery Method Nasal Cannula Oxygen Flow Rate 2 03/01/23 07:05 03/01/23 07:10 03/01/23 07:10 Temperature Pulse Rate 72 71 Respiratory Rate Blood Pressure 110/67 Pulse Oximetry 94 95 Oxygen Delivery Method Room Air Room Air Oxygen Flow Rate 03/01/23 07:30 03/01/23 07:30 03/01/23 08:00 Temperature Pulse Rate 68 Respiratory Rate Blood Pressure 105/66 112/65 Pulse Oximetry 93 Oxygen Delivery Method Oxygen Flow Rate 03/01/23 08:00 03/01/23 08:30 03/01/23 08:30 Temperature Pulse Rate 70 66 Respiratory Rate Blood Pressure 121/67 Pulse Oximetry 93 95 Oxygen Delivery Method Oxygen Flow Rate MDM - Female Genitourinary <Loli Negron DO - Last Filed: 03/01/23 20:04> Lab Data 03/01/23 04:35 03/01/23 04:35 Labs: Lab Results 03/01/23 03/01/23 Range/Units 04:35 05:10 WBC 5.2 (4.5-11.0) X10^3/uL RBC 4.60 (4.0-5.2) X10^6/uL Hgb 13.9 (12.0-16.0) g/dL Hct 41.0 (36-46) % MCV 89.1 (80-100) fL MCH 30.2 (26-34) PG MCHC 33.9 (30-36) % RDW 13.4 (11.6-14.8) % Plt Count 219 (150-400) X10^3/uL Neut % (Auto) 73.5 (50-75) % Lymph % (Auto) 12.8 L (25-40) % Story % (Auto) 13.3 (3-14) % Eos % (Auto) 0.2 L (2-4) % Baso % (Auto) 0.2 (0-2) % Neut # (Auto) 3800 (7590-9977) /uL Lymph # (Auto) 700 L (6734-4267) /uL Story # (Auto) 700 (0-900) /uL Eos # (Auto) 0 (0-450) /uL Baso # (Auto) 0 (0-100) /uL Sodium 132 L (137-145) mmol/L Potassium 3.6 (3.4-5.1) mmol/L Chloride 98 (98-107) mmol/L Carbon Dioxide 23 (22-32) mmol/L BUN 11 (7-17) mg/dL Creatinine 0.58 (0.52-1.04) mg/dL Estimated GFR > 60 (>60) mL/min BUN/Creatinine Ratio 19.0 (6-22) Glucose 98 (70-100) mg/dL Calcium 9.4 (8.4-10.2) mg/dL Total Bilirubin 0.6 (0.2-1.3) mg/dL AST 26 (14-36) IU/L ALT 15 (<35) IU/L Alkaline Phosphatase 61 (38-126) U/L Total Protein 8.1 (6.3-8.2) g/dL Albumin 4.6 (3.5-5.0) g/dL Globulin 3.5 (1.7-4.1) g/dL Albumin/Globulin Ratio 1.3 (1.0-2.8) Lipase 76 (23-300) U/L Urine RBC 0-1/hpf D (0-5/HPF) Urine WBC 0-1/hpf (0-5/HPF) Ur Squamous Epith Cells 10-30 /hpf H D (0-5/HPF) Urine Bacteria Occasional (0-1) (None) Ur Culture Indicated? Cult not indicated Vol Urine Centrifuged 10ml (spun) Urine Dip Bedside Urine Glucose Negative Bedside Urine Bilirubin - Negative Bedside Urine Ketone +++ 80 Urine Specific [place] 1.020 Bedside Urine Occult Blood +++ Bedside Urine pH 6.0 Bedside Urine Protein - Negative Bedside Urine Urobilinogen - Negative Bedside Urine Nitrite - Negative Bedside Urine Leukocytes - Negative Esterase Imaging Data CT scan - abdomen/pelvis: Radiologist's Impression: Bilateral renal stones, no current urinary tract obstruction or ureteral stone appreciated. Solid structure with calcification immediately above the urinary bladder could represent mass lesion may or may not be adnexal in origin. MDM Narrative Medical decision making narrative: 57-year-old female with left flank pain, patient has history of kidney stone states feels somewhat similar has also had kidney infections in the past. For labs, CT and and check urine. Patient had fluids, toradol and zofran. Minimal improvement, patient had additional dose of pain medication. Labs CBC shows a white count of 5.2 hemoglobin 13.9, platelets 219, sodium of 132 potassium 3.6 with normal renal function and BUN, glucose of [address] KUB shows no ureteral stones, patient does have a 2.6 x 2.8 x 3.3 cm well-circumscribed lobulated solid tissue structure in the midline immediately above the urinary bladder appears separate from fundus of the uterus separate from the urinary bladder. Small calcification within. Neither normal ovaries appreciated uterus is either partially surgically absent relatively atrophic in appearance. Urinary bladder is normal-appearing no bladder stone appreciated. urine shows ketones, 3+ blood, no nitrates, no leukocytes. Microscopy 0-1 RBCs, 0-1 WBCs, 10-30 squamous epithelials, occasional bacteria. Patient urinated about 200 mL, did have bladder scan with postvoid residual of 252. Discussed CT findings with patient. She has had a prior partial hysterectomy. Patient's pain is somewhat improved after additional pain medication. Pelvic US is pending. Pelvic ultrasound shows that the lobulated masses likely a exophytic fibroid on top of uterine remnant. Patient states that she does have part of her uterus still, so fibroid is likely diagnosis. Postvoid residual 70 mL, patient is able to empty her bladder despite saying that she does not feel that she is completely voiding. With unremarkable labs and otherwise negative CT findings to explain patient's symptoms question if this is lumbar strain. Patient's son at bedside states that she has been moving furniture around lately and this could contribute to her symptoms. She was advised to stop taking NyQuil as the doxylamine may cause difficulties urinating. She has Flomax at home and she may take that if she feels she is unable to completely void. She has seen urology in the past and she was referred back to her urologist for follow up. <Loli Quinonez MD - Last Filed: 03/01/23 09:40> Lab Data Labs: Lab Results 03/01/23 03/01/23 Range/Units 04:35 05:10 WBC 5.2 (4.5-11.0) X10^3/uL RBC 4.60 (4.0-5.2) X10^6/uL Hgb 13.9 (12.0-16.0) g/dL Hct 41.0 (36-46) % MCV 89.1 (80-100) fL MCH 30.2 (26-34) PG MCHC 33.9 (30-36) % RDW 13.4 (11.6-14.8) % Plt Count 219 (150-400) X10^3/uL Neut % (Auto) 73.5 (50-75) % Lymph % (Auto) 12.8 L (25-40) % Story % (Auto) 13.3 (3-14) % Eos % (Auto) 0.2 L (2-4) % Baso % (Auto) 0.2 (0-2) % Neut # (Auto) 3800 (2113-4246) /uL Lymph # (Auto) 700 L (8858-3660) /uL Story # (Auto) 700 (0-900) /uL Eos # (Auto) 0 (0-450) /uL Baso # (Auto) 0 (0-100) /uL Sodium 132 L (137-145) mmol/L Potassium 3.6 (3.4-5.1) mmol/L Chloride 98 (98-107) mmol/L Carbon Dioxide 23 (22-32) mmol/L BUN 11 (7-17) mg/dL Creatinine 0.58 (0.52-1.04) mg/dL Estimated GFR > 60 (>60) mL/min BUN/Creatinine Ratio 19.0 (6-22) Glucose 98 (70-100) mg/dL Calcium 9.4 (8.4-10.2) mg/dL Total Bilirubin 0.6 (0.2-1.3) mg/dL AST 26 (14-36) IU/L ALT 15 (<35) IU/L Alkaline Phosphatase 61 (38-126) U/L Total Protein 8.1 (6.3-8.2) g/dL Albumin 4.6 (3.5-5.0) g/dL Globulin 3.5 (1.7-4.1) g/dL Albumin/Globulin Ratio 1.3 (1.0-2.8) Lipase 76 (23-300) U/L Urine RBC 0-1/hpf D (0-5/HPF) Urine WBC 0-1/hpf (0-5/HPF) Ur Squamous Epith Cells 10-30 /hpf H D (0-5/HPF) Urine Bacteria Occasional (0-1) (None) Ur Culture Indicated? Cult not indicated Vol Urine Centrifuged 10ml (spun) Urine Dip Bedside Urine Glucose Negative Bedside Urine Bilirubin - Negative Bedside Urine Ketone +++ 80 Urine Specific [place] 1.020 Bedside Urine Occult Blood +++ Bedside Urine pH 6.0 Bedside Urine Protein - Negative Bedside Urine Urobilinogen - Negative Bedside Urine Nitrite - Negative Bedside Urine Leukocytes - Negative Esterase MDM Narrative Medical decision making narrative: 57-year-old female with left flank pain, patient has history of kidney stone states feels somewhat similar has also had kidney infections in the past. For labs, CT and and check urine. Patient had fluids, toradol and zofran. Minimal improvement, patient had additional dose of pain medication. Labs CBC shows a white count of 5.2 hemoglobin 13.9, platelets 219, sodium of 132 potassium 3.6 with normal renal function and BUN, glucose of [address] KUB shows no ureteral stones, patient does have a 2.6 x 2.8 x 3.3 cm well-circumscribed lobulated solid tissue structure in the midline immediately above the urinary bladder appears separate from fundus of the uterus separate from the urinary bladder. Small calcification within. Neither normal ovaries appreciated uterus is either partially surgically absent relatively atrophic in appearance. Urinary bladder is normal-appearing no bladder stone appreciated. urine shows ketones, 3+ blood, no nitrates, no leukocytes. Microscopy 0-1 RBCs, 0-1 WBCs, 10-30 squamous epithelials, occasional bacteria. Patient urinated about 200 mL, did have bladder scan with postvoid residual of 252. Discussed CT findings with patient. She has had a prior partial hysterectomy. Patient's pain is somewhat improved after additional pain medication. Pelvic US Pelvic ultrasound shows that the lobulated masses likely a exophytic fibroid on top of uterine remnant. Patient states that she does have part of her uterus still, so fibroid is likely diagnosis. Postvoid residual 70 mL, patient is able to empty her bladder despite saying that she does not feel that she is completely voiding. With unremarkable labs and otherwise negative CT findings to explain patient's symptoms question if this is lumbar strain. Patient's son at bedside states that she has been moving furniture around lately and this could contribute to her symptoms. She was advised to stop taking NyQuil as the doxylamine may cause difficulties urinating. She has Flomax at home and she may take that if she feels she is unable to completely void. She has seen urology in the past and she was referred back to her urologist for follow up. Discharge Plan Departure Patient Disposition: Home Clinical Impression: Left flank pain Instructions: DI for Back Strain or Sprain Activity Restrictions/Additional Instructions: Your white blood cell count, kidney function, urinalysis were negative for any infection. On your CT scan you have small stones inside of your kidney, but these do not cause pain and are unrelated to your flank pain today. If you have trouble urinating you may take Flomax, otherwise I recommend that you continue to stopped taking NyQuil, as 1 of the agents there can cause problems urinating. If you continued to have difficulty urinating I recommend that he follow up with your urologist Dr. Huffman Prescriptions: No Action No Known Home Medications Referrals: Tiffanie Huffman MD [Physician] - (Seen in ED) Loni Ryan DO [Primary Care Provider] - Stand Alone Forms: Patient Portal/API
--- NOTE | 2023-03-01 04:27 | DI.CT.S_ITS ---
PROCEDURE: CT KIDNEY URETER BLADDER (KUB) INDICATIONS: L flank pain, hx kidney stones TECHNIQUE: Axial sections were acquired from the lung bases to the pubic symphysis. Coronal and sagittal reformats were performed. For radiation dose reduction, the following was used: automated exposure control, adjustment of mA and/or kV according to patient size. COMPARISON: [facility], CT, CT KIDNEY URETER BLADDER (KUB), 10/12/2018, 7:09. [facility], CT, CT ABDOMEN PELVIS W CON, 04/28/2022, 14:24. [facility], CT, CT KIDNEY URETER BLADDER (KUB), 07/01/2022, 22:29. FINDINGS: Lower thorax: The lung bases are clear. Heart size normal. No hiatal hernia. Liver: Normal in size and attenuation. No contour deformity present. Biliary system: No calcified cholelithiasis or pericholecystic inflammation. No intra or extrahepatic bile duct dilatation. Pancreas: Unremarkable without mass or inflammation evident. Spleen: Normal in size and density. Adrenals: Normal morphology and density. Reproductive system: Uterus or uterine like structure in the pelvis appears to the have somewhat nodular fundus measuring 2.6 x 2.8 x 3.3 cm, most consistent with and exophytic fibroid. Finding is slightly smaller compared to prior exam 10/12/2018 but stable from April 2022 Urinary system: Bilateral nonobstructing renal calculi noted, largest on the right measures 3 mm. No hydronephrosis bilaterally. Simple appearing renal cysts bilaterally measure up to 1.9 cm Gastrointestinal system: The bowel is unremarkable without evidence of bowel obstruction or inflammation. The stomach appears unremarkable. Appendix: No findings to suggest acute appendicitis. Peritoneal spaces: No mesenteric or retroperitoneal adenopathy. No free air. No free fluid. Vasculature: The IVC, aorta and iliac vasculature are unremarkable. Abdominal wall: Abdominal wall intact without evidence of ventral or inguinal hernias. Musculoskeletal: Normal bone mineralization. No acute fractures. IMPRESSION: 1. Bilateral nonobstructing renal calculi measure up to 3 mm each. No hydronephrosis. Stable renal cysts. 2. Uterus or uterine like structure in the pelvis with stable probable exophytic 3.3 cm fibroid. Note: This final report is concordant with the preliminary after-hours interpretation provided by [email or web address] Approved by: Jett Goss M.D. on 03/01/2023 at 8:39
[2023-03-01] MEDS: KETOROLAC 30 MG/ML VIAL 15 MG IV ×2 (04:35→08:43)
[2023-03-01] MEDS: SODIUM CHLORIDE 0.9% 1,000 ML 1000 ML IV (04:35)
[2023-03-01] MEDS: ONDANSETRON 4 MG/2 ML INJ IV (04:35)
[2023-03-01 04:44] LABS: Add Manual Diff / Slide Review NO; Basophils Absolute Auto 0 /uL (0-100); Basophils Percent Auto 0.2 % (0-2); Eosinophils Absolute Auto 0 /uL (0-450); Eosinophils Percent Auto 0.2 % (2-4); Hemoglobin 13.9 g/dL (12.0-16.0); Lymphocytes Absolute Auto 700 /uL (1100-4500); Lymphocytes Percent Auto 12.8 % (25-40); Mean Corpuscular HGB Conc 33.9 % (30-36); Mean Corpuscular Hemoglobin 30.2 PG (26-34); Mean Corpuscular Volume 89.1 fL (80-100); Monocytes Absolute Auto 700 /uL (0-900); Monocytes Percent Auto 13.3 % (3-14); Neutrophils Absolute Auto 3800 /uL (1500-7000); Neutrophils Percent Auto 73.5 % (50-75); Platelet Count 219 X10^3/uL (150-400); Red Cell Distribution Width 13.4 % (11.6-14.8); White Blood Cell Count 5.2 X10^3/uL (4.5-11.0)
[2023-03-01 04:57] LABS: Alanine Aminotransferase 15 IU/L (<35); Albumin 4.6 g/dL (3.5-5.0); Albumin Globulin Ratio 1.3 (1.0-2.8); Alkaline Phosphatase 61 U/L (38-126); Aspartate Aminotransferase 26 IU/L (14-36); Bilirubin Total 0.6 mg/dL (0.2-1.3); Blood Urea Nitrogen 11 mg/dL (7-17); Calcium 9.4 mg/dL (8.4-10.2); Carbon Dioxide 23 mmol/L (22-32); Chloride 98 mmol/L (98-107); Estimated Glomerular Filt Rate > 60 mL/min (>60); Globulin 3.5 g/dL (1.7-4.1); Glucose 98 mg/dL (70-100); HEMOLYSIS 20 (0-50); Lipase 76 U/L (23-300); Potassium 3.6 mmol/L (3.4-5.1); Sodium 132 mmol/L (137-145); Total Protein 8.1 g/dL (6.3-8.2)
[2023-03-01] MEDS: HYDROMORPHONE 1 MG INJ IV (05:30)
[2023-03-01 05:32] LABS: Urine Volume 10mL (spun)
--- NOTE | 2023-03-01 05:45 | PC.NURSE ---
RA SpO2 decreased to mid-80s as pt. sleeps following IV Dilaudid administration. O2 placed via NC @ 2L/min.
[2023-03-01 05:47] LABS: Bacteria Urine Occasional (0-1); Culture Indicated Urine Cult Not Indicated; RBC Urine 0-1/HPF (0-5/HPF); Squamous Epithelial Cell Urine 10-30 /HPF (0-5/HPF); WBC Urine 0-1/HPF (0-5/HPF)
--- NOTE | 2023-03-01 05:51 | DI.US.S_ITS ---
PROCEDURE: US PELVIC COMPLETE INDICATIONS: flank pain, CT shows lobulated mass, hx partial hyst TECHNIQUE: Real-time scanning was performed of the pelvic organs, with image documentation. Additional endovaginal scanning was necessary due to incomplete visualization of the adnexal and endometrial structures by transabdominal scanning. COMPARISON: [facility], CT, CT ABDOMEN PELVIS W CON, 04/28/2022, 14:24. [facility], CT, CT KIDNEY URETER BLADDER (KUB), 06/13/2022, 7:32. [facility], CT, CT KIDNEY URETER BLADDER (KUB), 10/12/2018, 7:09. [facility], CT, CT KIDNEY URETER BLADDER (KUB), 07/01/2022, 22:29. [facility], CT, CT KIDNEY URETER BLADDER (KUB), 03/01/2023, 4:42. FINDINGS: Uterus: Although the patient reports a history of hysterectomy, there is a uterine like structure attached to the cervix corresponding with the prior CT findings. Probable exophytic fibroid noted arising from the fundus measures 3.6 x 2.9 x 2.7 and remains similar from prior CTs dating back to at least 04/2022, and smaller from 2019 Ovaries: Neither ovary visualized Other: No pathologic free abdominal or pelvic fluid. IMPRESSION: Uterine like structure in the pelvis with probable exophytic fibroid, stable from at least April 2022. Correlate with exact surgical history Approved by: Jett Goss M.D. on 03/01/2023 at 8:14
--- NOTE | 2023-03-01 06:38 | PC.NURSE ---
US continues at bedside
[2023-03-01] MEDS: methocarbamoL 500 MG TABLET 750 MG PO (08:42)
[2023-03-01] MEDS: DEXAMETHASONE 10 MG/ML VIAL IV (08:44)
[2023-03-01] MEDS: LIDOCAINE 5% PATCH 1 EACH TOP (08:44)
== END 2023-03-01 09:44 | disposition home or self-care (01) ==
PROVIDERS: Emergency Provider Emergency Medicine; PCP Family Medicine
DX: R10.9 Unspecified abdominal pain (principal); Z87.442 Personal history of urinary calculi
CPT/HCPCS: 36415; 51798; 74176; 76856; 80053; 81003; 81015; 83690; 85025; 96361; 96374; 96375; 96376; 99284; 99285; J1100; J1170; J1885; J2405

== ENCOUNTER → 2024-10-22 09:04 | Outpatient (CLI) | payer OTHER, SELFPAY ==
[2022-06-13 17:14] VITALS: BMI 28.3
--- NOTE | 2024-10-22 09:04 | DI.MRI.S_ITS ---
PROCEDURE: MR LUMBAR SPINE WO CON INDICATIONS: Other low back pain TECHNIQUE: Noncontrast sagittal T1 spin echo and T2 fast echo, sagittal STIR, and T2 fast spin echo through the lumbar spine. In cases with scoliosis, additional coronal T2 fast spin echo may be performed. COMPARISON: CT abdomen pelvis report on 04/28/2022. FINDINGS: Image quality: Excellent. Alignment and Curvature: There is normal bony alignment. Bone Marrow: No suspicious marrow replacing process. Typical spinal hemangioma at L2. Small typical spinal hemangioma at L4. No acute vertebral body compression fractures. Spinal Cord: Conus medullaris terminates at the L1 level. Visualized cord demonstrates normal signal and size. Paraspinous Soft Tissues: T2 hyperintense cortical and peripelvic cysts in both kidneys T12-L1: Normal appearance. L1-L2: Normal appearance. L2-L3: Normal appearance. L3-L4: Mild spinal canal stenosis due to diffuse disc bulge, and ligamentum flavum thickening, and bilateral facet arthrosis. Mild bilateral neural foraminal stenosis due to subarticular disc bulge and facet arthrosis. L4-L5: Moderate spinal canal stenosis due to symmetric disc bulge, ligamentum flavum thickening, and facet arthrosis. Mild bilateral lateral recess stenosis due to subarticular disc bulge and ligamentum flavum thickening. Moderate bilateral neural foraminal stenosis due to subarticular disc bulge and facet arthrosis. L5-S1: Mild bilateral lateral recess stenosis due to subarticular and paracentral disc bulge. No significant spinal canal stenosis. Moderate to severe bilateral neural foraminal stenosis due to subarticular disc bulge and facet arthrosis. IMPRESSION: 1. Multilevel spinal canal stenosis is moderate at L4-5. 2. Multilevel neural foraminal stenosis is moderate bilaterally at L4-5 and moderate to severe bilaterally at L5-S1. Dictated by: Rigoberto Parker M.D. on 10/24/2024 at 13:03 Approved by: Rigoberto Parker M.D. on 10/24/2024 at 13:07
== END ==
LOC: MRI 09:04
PROVIDERS: PCP Family Medicine; Referring Provider Family Medicine; Visit Provider Family Medicine
DX: M54.16 Radiculopathy, lumbar region (principal); M48.061 Spinal stenosis, lumbar region without neurogenic claudication; M48.07 Spinal stenosis, lumbosacral region; M54.59 Other low back pain
CPT/HCPCS: 72148